=== PATIENT | female | born 1935 | race Caucasian/White ===

== ENCOUNTER 2019-12-05 07:23 | Day surgery (SDC) | payer MEDICARE, BC, SELFPAY ==
[2019-11-29 16:26] VITALS: BMI 25.2
--- NOTE | 2019-12-04 08:26 | P.CONAN_ITS ---
Documented by User: Jessie Mayer 12/04/19 08:31 HPI - Anesthesia Eval Consult details Narrative: 84yo F for EGD: esophagitis, esoph stricture Last EGD 08/08/19 with TIVA PMFSH Past Medical History Medical History Arthritis BCC (basal cell carcinoma of skin) Carotid stenosis, asymptomatic Degenerative joint disease of knee Elevated cholesterol Hearing loss History of dysphagia History of esophageal stricture Iron deficiency anemia PVD (peripheral vascular disease) Trigeminal neuralgia Surgical History Surgical History History of esophagogastroduodenoscopy (EGD) History of total left hip replacement Hx of colonoscopy Social History Social History Smoking Status: Unknown if ever smoked Use of substances other than those prescribed or required for medical reasons: No Advance Directives: No Advance Directives Information Provided: No Advance Directives on File: No Meds Allergies Allergy/AdvReac Type Severity Reaction Status Date / Time celecoxib [Celebrex] Allergy Unknown hives Verified 11/29/19 16:25 hydromorphone [Dilaudid] Allergy Unknown nausea/vomi Verified 11/29/19 16:25 tting naproxen [Aleve] Allergy Unknown elevated bp Verified 11/29/19 16:25 tramadol Allergy Unknown vomit Verified 11/29/19 16:25 Eggs/Apples/Oats Allergy Unknown Unknown Uncoded 11/29/19 16:25 Sulfacet-R Allergy Unknown Unknown Uncoded 11/29/19 16:25 Home Medications Medication Instructions Recorded Confirmed Type atorvastatin [Lipitor] 10 mg PO DAILY 11/29/19 11/29/19 History cyclosporine [Restasis] 1 drp OPHTHALMIC (EYE) Q12H 11/29/19 11/29/19 History fluticasone propionate [Flonase] 1 spray INTRANASAL DAILY 11/29/19 11/29/19 History pantoprazole 20 mg PO DAILY 11/29/19 12/05/19 History Exam Exam Date and Time: December 04, 2019 0826 Height,Weight and Vital Signs: Height 5 ft 5 in Weight 68.946 kg Pertinent Lab Results Pertinent Lab Results: Laboratory Tests 08/28/19 09/12/19 11:56 11:26 WBC 10.4 Hgb 12.3 Hct 39.2 Plt Count 282 Sodium 141 Potassium 4.4 Chloride 104 BUN 15 Creatinine 0.92 Assessment and Plan Assessment Anesthesia Assessment: Chart Reviewed Documented by User: Yossi Be MD 12/05/19 08:27 [facility] Past Medical History Medical History Arthritis BCC (basal cell carcinoma of skin) Carotid stenosis, asymptomatic Degenerative joint disease of knee Elevated cholesterol Hearing loss History of dysphagia History of esophageal stricture Iron deficiency anemia PVD (peripheral vascular disease) Trigeminal neuralgia Surgical History Surgical History History of esophagogastroduodenoscopy (EGD) History of total left hip replacement Hx of colonoscopy Social History Social History Smoking Status: Unknown if ever smoked Use of substances other than those prescribed or required for medical reasons: No Advance Directives: No Advance Directives Information Provided: No Advance Directives on File: No Meds Allergies Allergy/AdvReac Type Severity Reaction Status Date / Time celecoxib [Celebrex] Allergy Unknown hives Verified 11/29/19 16:25 hydromorphone [Dilaudid] Allergy Unknown nausea/vomi Verified 11/29/19 16:25 tting naproxen [Aleve] Allergy Unknown elevated bp Verified 11/29/19 16:25 tramadol Allergy Unknown vomit Verified 11/29/19 16:25 Eggs/Apples/Oats Allergy Unknown Unknown Uncoded 11/29/19 16:25 Sulfacet-R Allergy Unknown Unknown Uncoded 11/29/19 16:25 Home Medications Medication Instructions Recorded Confirmed Type atorvastatin [Lipitor] 10 mg PO DAILY 11/29/19 11/29/19 History cyclosporine [Restasis] 1 drp OPHTHALMIC (EYE) Q12H 11/29/19 11/29/19 History fluticasone propionate [Flonase] 1 spray INTRANASAL DAILY 11/29/19 11/29/19 History pantoprazole 20 mg PO DAILY 11/29/19 12/05/19 History Exam Airway Mallampati Class: II TM Dist: >3cm Neck ROM: Limited Loose/Missing/Broken Teeth: No Heart: rrr Lungs: nl Other: ao Assessment and Plan Assessment Anesthesia Assessment: Anesthesia Plan Discussed and Chart Reviewed Final Anesthetic Review NPO: Yes ASA Class: III Final Preanesthetic Review: No Changes in Pt Med Stat, Meds/Allgs Chart Reviewed, Consent Obtained/Reviewed and Anes Risks/Benef Reviewed Patient Risk: Intermediate Procedure Risk: Intermediate Anesthetic Plan Anesthetic Plan: MAC: Disposition: Standard PACU
[2019-12-05 07:59] VITALS: BP 178/71; PULSE 77; RESP 16; TEMP 36.1; O2SAT 97
[2019-12-05] MEDS: Lactated Ringers 1,000 ML 100 ML IVCONT (08:14)
--- NOTE | 2019-12-05 08:33 | MHC.SHP ---
Pre-Procedural Eval Section B Chief Complaint: DYSPHASIA Details of Present Illness: dysphagia Relevant Family History (Specify if Yes): No Relevant Social History: None Present Medications: see Short Stay Collaborative assessment Medical History: Significant History (Eoe OA, hearing loss, ) History of Previous Operations: Relevant previous surgery/procedure and date(s) (hip surgery) Allergies: Allergies Allergy/AdvReac Type Severity Reaction Status Date / Time celecoxib [Celebrex] Allergy Unknown hives Verified 11/29/19 16:25 hydromorphone [Dilaudid] Allergy Unknown nausea/vomi Verified 11/29/19 16:25 tting naproxen [Aleve] Allergy Unknown elevated bp Verified 11/29/19 16:25 tramadol Allergy Unknown vomit Verified 11/29/19 16:25 Eggs/Apples/Oats Allergy Unknown Unknown Uncoded 11/29/19 16:25 Sulfacet-R Allergy Unknown Unknown Uncoded 11/29/19 16:25 Review of Systems Sugical H&P ROS: Negative: Constitution, Cardiovascular, Respiratory, Neurological, Psychiatric, Hem-Onc, Allergic/Immunologic, Gastrointestinal, Genitourinary, Musculoskeletal, Integumentary, Endocrine and Eyes/Ears/Nose/Throat Exam Surgical H&P Exam: Normal: HEENT, Normal: Heart, Normal: Lungs, Normal: Extremities, Normal: Abdomen, Normal: Skin and Normal: Neurological Plan Diagnosis/Plan: Unchanged Patient has been examined and remains a candidate for the planned procedure
--- NOTE | 2019-12-05 08:48 | W.PM.OPN ---
Operative Note Operative Note Narrative: Procedure Description: EGD FLEXIBLE TRANSORAL UPPER GASTROINTESTINAL ENDOSCOPY UPPER ENDOSCOPY Consent: Indications for the procedure and potential complications of bleeding, perforation, reaction to medications and missed diagnosis were discussed with the patient and informed consent was obtained. Instrument: Olympus GIF H 190 J mid size upper endoscope Monitoring: Vital signs and clinical assessment, continuous EKG monitoring, Pulse oximetry, Carbon Dioxide monitoring and blood pressure monitoring were done throughout the procedure. Procedure: The patient was placed in the left lateral decubitis position and pre-procedure medications were administered and a bite block was placed. The endoscope was inserted into the mouth and advanced under direct vision to the third part of duodenum. A careful inspection was made as the upper endoscope was withdrawn including a retroflexed examination of the proximal stomach; Findings and interventions are described below. Findings: Larynx:normal Esophagus: GE junction at 35 cm, diaphragm hiatus at 38 cm, 3 cm sliding hiatal hernia noted, some ringing of the esophagus, bx takenf rom distal and proximal esophagus in seperate jars Stomach: Patchy gastric erythema. Grade 2 flap valve on retroflexed examination of the cardia. Several fundic gland polyps noted Duodenum: Normal bulb and descending duodenum, bx taken Intervention: Biopsies as noted above Impression/Findings: hiatal hernia mild gastritis PLAN: cont with current treatment, await bx results
[2019-12-05 08:50] VITALS: BP 126/63; PULSE 77; RESP 16; TEMP 36.3; O2SAT 98
--- NOTE | 2019-12-05 08:51 | PM.OP ---
Brief Operative Note Date of procedure: 12/05/19 Pre-op diagnosis: dysphagia Post-op diagnosis: same Procedure: EGd, see op note Surgeon: Petar Encinas MD Anesthesia: MAC Estimated blood loss (mL): 0 Condition: stable Disposition: same day
[2019-12-05 09:05] VITALS: BP 136/88; PULSE 75; RESP 18; O2SAT 99
--- NOTE | 2019-12-05 09:39 | HO.POSTANES ---
Post Anesthesia Evaluation Post Anesthesia Evaluation Vital Signs: Vital Signs Temp Pulse Resp BP Pulse Ox 12/05/19 09:05 97.3 F 75 18 136/88 99 12/05/19 08:50 97.3 F 77 16 126/63 98 12/05/19 07:59 97.0 F 77 16 178/71 H 97 Anesthesia: General (TIVA) Mental Status: Awake Pain Control: Satisfactory Nausea/Vomiting: None Hydration: Adequate Anesthesia-Related Issues: No Anes. Related Issues
== END 2019-12-05 10:09 | disposition home or self-care (01) ==
PROVIDERS: Internal Medicine Gastroenterology; PCP Internal Medicine; Visit Provider Internal Medicine
PROC: 0DJ08ZZ Inspection of Upper Intestinal Tract, Via Natural or Artificial Opening Endoscopic (ICD-10-PCS; CPT 43235; principal; 2019-12-05 08:30)
DX: K20.0 Eosinophilic esophagitis (principal); K44.9 Diaphragmatic hernia without obstruction or gangrene; K29.70 Gastritis, unspecified, without bleeding; K31.7 Polyp of stomach and duodenum; K57.30 Diverticulosis of large intestine without perforation or abscess without bleeding; E78.5 Hyperlipidemia, unspecified; G50.0 Trigeminal neuralgia; Z79.899 Other long term (current) drug therapy; Z88.8 Allergy status to other drugs, medicaments and biological substances; Z85.828 Personal history of other malignant neoplasm of skin; Z96.642 Presence of left artificial hip joint
CPT/HCPCS: 43239; 88305

== ENCOUNTER → 2020-02-21 14:48 | Outpatient (BNVA) | payer MEDICARE, BC, SELFPAY | PROVIDERS: PCP Internal Medicine; Visit Provider Surgery Vascular Surgery | DX: I73.9 Peripheral vascular disease, unspecified (principal); I65.23 Occlusion and stenosis of bilateral carotid arteries | CPT/HCPCS: 99212 ==

== ENCOUNTER → 2020-03-17 11:21 | Outpatient (BNVA) | payer MEDICARE, BC, SELFPAY | PROVIDERS: PCP Internal Medicine; Visit Provider Internal Medicine Gastroenterology | DX: Z13.89 Encounter for screening for other disorder (principal) | CPT/HCPCS: Q3014 ==

== ENCOUNTER 2020-05-26 12:44 | Outpatient (REF) | payer MEDICARE, BC, SELFPAY ==
--- NOTE | ~2020-05-26 | US_ITS ---
EXAMINATION: US EXTRACRANIAL CAROTID DUPLEX, BILATERAL CLINICAL INFORMATION: Carotid artery stenosis COMPARISON: None TECHNIQUE: Real-time ultrasound and Doppler techniques (integrating B-mode 2-D vascular images, Doppler spectral analysis and color-flow Doppler imaging) were utilized to interrogate the extracranial carotid arteries, the vertebral arteries and proximal subclavian arteries bilaterally. The degree of stenosis is determined by criteria similar to NASCET. FINDINGS: Right Side: 1. There is calcified atherosclerotic plaque seen in the bifurcation/proximal ICA region. 2. The common carotid artery PSV proximally is 150 cm/s and distally 121 cm/s. 3. The proximal internal carotid artery velocities are 112 cm/s systolic and 33.4 cm/s diastolic. 4. The proximal external carotid artery PSV is 98.5 cm/s. 5. The vertebral artery shows antegrade flow. 6. The subclavian artery waveforms are normal. Left Side: 1. There is calcified atherosclerotic plaque seen in the bifurcation/proximal ICA region. 2. The common carotid artery PSV proximally is 95 cm/s and distally 119 cm/s. 3. The proximal internal carotid artery velocities are 60.8 cm/s systolic and 14.5 cm/s diastolic. 4. The proximal external carotid artery PSV is 96.9 cm/s. 5. The vertebral artery shows antegrade flow. 6. The subclavian artery waveforms are normal. US/US carotid duplex BI IMPRESSION: 1. RIGHT: Minimal, non-hemodynamically significant stenosis of the proximal right internal carotid artery corresponding to a 0-49% stenosis by velocity criteria. 2. LEFT: Minimal, non-hemodynamically significant stenosis of the proximal left internal carotid artery corresponding to a 0-49% stenosis by velocity criteria.
== END 2020-05-26 12:45 | disposition home or self-care (01) ==
LOC: HO.US 12:44
PROVIDERS: Visit Provider Surgery Vascular Surgery
DX: I63.233 Cerebral infarction due to unspecified occlusion or stenosis of bilateral carotid arteries (principal)
CPT/HCPCS: 93880

== ENCOUNTER → 2020-06-05 12:58 | Outpatient (BNVA) | payer MEDICARE, BC, SELFPAY | PROVIDERS: PCP Internal Medicine; Visit Provider Surgery Vascular Surgery | DX: I65.23 Occlusion and stenosis of bilateral carotid arteries (principal); I83.12 Varicose veins of left lower extremity with inflammation | CPT/HCPCS: 99212 ==

== ENCOUNTER → 2020-08-07 15:15 | Outpatient (BNVA) | payer MEDICARE, BC, SELFPAY | PROVIDERS: PCP Internal Medicine; Visit Provider Anesthesiology | DX: M16.11 Unilateral primary osteoarthritis, right hip (principal); M47.816 Spondylosis without myelopathy or radiculopathy, lumbar region; M51.36 Other intervertebral disc degeneration, lumbar region; G89.4 Chronic pain syndrome | CPT/HCPCS: 99202 ==

== ENCOUNTER 2020-08-20 10:15 | Outpatient (REF) | payer MEDICARE, BC, SELFPAY ==
--- NOTE | ~2020-08-20 | US_ITS ---
EXAMINATION: RIGHT and LEFT LOWER EXTREMITY VENOUS ULTRASOUND (Reflux Exam) CLINICAL INDICATION: leg pain and varicose veins. COMPARISON: Varicose veins. TECHNIQUE: Color flow triplex imaging and compression Doppler was performed to evaluate both the deep and the superficial systems bilaterally. To evaluate the superficial system, the examination was performed in the upright position. Color-flow Doppler ultrasound and compression ultrasound were utilized. In addition, maneuvers were utilized to demonstrate reflux. FINDINGS: 1. DEEP VENOUS ULTRASOUND OF THE RIGHT LOWER EXTREMITY: Respiratory variation, normal compression and augmented flow are noted in the right common femoral vein as well as the right popliteal vein and there is no evidence of deep venous thrombosis at these locations. There is no evidence of reflux in the deep system in either the common femoral vein or the popliteal vein. There is a 4.1 x 0.8 x 2.5 cm Kim's cyst. 2. SUPERFICIAL ULTRASOUND WITH DOPPLER OF RIGHT LOWER EXTREMITY: The right great saphenous vein at the saphenofemoral junction measures 6 mm, at the mid thigh 3 mm, rledj-fsl-zwme 2 mm, mxgrc-bpz-dydx 2 mm, at mid calf 2 mm and at the ankle measures 3 mm. There is no reflux demonstrated in the right great saphenous vein. There is a laterally accessory greater saphenous vein that measures 1 to 3 mm that does not demonstrate reflux The right small saphenous vein measures 3 to 4 mm and shows no reflux. There are perforators in the thigh and calf that measure 2 to 3 mm and do not demonstrate reflux. 3. DEEP VENOUS ULTRASOUND OF THE LEFT LOWER EXTREMITY: Respiratory variation, normal compression and augmented flow are noted in the left common femoral vein as well as the left popliteal vein and there is no evidence of deep venous thrombosis at these locations. There is no evidence of reflux in the deep system in either the common femoral vein or the popliteal vein. . There is a 3.5 x 1.1 x 1.8 Kim's cyst. 4. SUPERFICIAL ULTRASOUND WITH DOPPLER OF LEFT LOWER EXTREMITY: Left great saphenous vein at the saphenofemoral junction measures 7 mm, at the mid thigh are mm, ujnxy-fjw-fyxn 2 mm, dpqtv-wev-eggu the mm, at mid calf 1 mm and at the ankle measures 2 mm. There is no reflux demonstrated in the left great saphenous vein. There is an accessory medial greater saphenous vein that measures 2 to 4 mm and does not demonstrate reflux. There is an accessory lateral greater saphenous vein that measures 2 to 3 mm and does not demonstrate reflux. The left small saphenous vein measures 5 mm at the saphenofemoral popliteal junction. The remainder of the left lesser saphenous vein is not seen. There is a dye colorist dyer in the proximal calf that measures 2 mm and does not demonstrate reflux. There is a varicosity of the lesser saphenous vein that measures 4 mm and demonstrates 2 seconds reflux. There is a varicosity at the knee that measures 3 mm and does not demonstrate reflux. There is a varicosity in the left proximal calf of the greater saphenous vein that measures 3 mm and demonstrates 0.4 seconds US/US venous duplex LE BI IMPRESSION: 1. No evidence of reflux or thrombus in the common femoral veins or popliteal veins bilaterally. 2. No greater saphenous vein reflux. The left lesser saphenous vein is slightly dilated measuring 5 mm at the saphenofemoral junction and is otherwise not visualized. There is a varicosity in the left calf of the proximal lesser saphenous vein that measures 4 mm and demonstrates 2.1 seconds reflux.
== END 2020-08-20 10:16 | disposition home or self-care (01) ==
LOC: HO.US 10:15
PROVIDERS: PCP Internal Medicine; Visit Provider Surgery Vascular Surgery
DX: I83.893 Varicose veins of bilateral lower extremities with other complications (principal); I83.12 Varicose veins of left lower extremity with inflammation
CPT/HCPCS: 93970

== ENCOUNTER → 2020-09-04 10:52 | Outpatient (BNVA) | payer MEDICARE, BC, SELFPAY | PROVIDERS: PCP Internal Medicine; Visit Provider Surgery Vascular Surgery | DX: I83.12 Varicose veins of left lower extremity with inflammation (principal); I73.9 Peripheral vascular disease, unspecified; E78.00 Pure hypercholesterolemia, unspecified | CPT/HCPCS: 99212 ==

== ENCOUNTER → 2021-02-02 10:11 | Outpatient (BNVA) | payer MEDICARE, BC, SELFPAY | PROVIDERS: PCP Internal Medicine; Referring Provider Internal Medicine; Visit Provider Internal Medicine Gastroenterology | DX: K21.00 Gastro-esophageal reflux disease with esophagitis, without bleeding (principal); K44.9 Diaphragmatic hernia without obstruction or gangrene | CPT/HCPCS: 99212 ==

== ENCOUNTER → 2021-11-02 09:31 | Outpatient (BNVA) | payer MEDICARE, BC, SELFPAY | PROVIDERS: PCP Internal Medicine; Visit Provider Internal Medicine Gastroenterology | DX: K44.9 Diaphragmatic hernia without obstruction or gangrene (principal); K21.00 Gastro-esophageal reflux disease with esophagitis, without bleeding; I73.9 Peripheral vascular disease, unspecified; Z98.890 Other specified postprocedural states | CPT/HCPCS: 99212 ==

== ENCOUNTER 2022-10-11 10:49 | Outpatient (AMB) | payer MEDICARE, BC, SELFPAY ==
[2022-10-11 10:51] VITALS: BP 124/70; PULSE 73; RESP 14; O2SAT 99; BMI 24.1
--- NOTE | 2022-10-11 10:51 | A.OFFVIS_ITS ---
Intake Vital Signs 10/11/22 10:51 Height 5 ft 5 in Weight 145 lb BMI 24.1 BP 124/70 Blood Pressure Location Rt brachial Position Sitting Respiration 14 Pulse 73 Pulse Source Pulse Oximeter Pulse Oximetry (%) 99 Oxygen Delivery Method Room Air Intake Visit Reasons: LBP lumbar disc disease Allergies celecoxib [Celebrex] Allergy (Unknown, Verified 10/11/22 10:52) hives hydromorphone [Dilaudid] Allergy (Unknown, Verified 10/11/22 10:52) nausea/vomitting naproxen [Aleve] Allergy (Unknown, Verified 10/11/22 10:52) elevated bp tramadol Allergy (Unknown, Verified 10/11/22 10:52) vomit coconut Allergy (Verified 10/11/22 10:52) nausea, rash diphenhydramine [From Benadryl] Allergy (Verified 10/11/22 10:52) unknown cetirizine [From Zyrtec] Adverse Reaction (Mild, Verified 10/11/22 10:52) Itching atorvastatin [From Lipitor] Adverse Reaction (Unknown, Verified 10/11/22 10:52) stiffness codeine Adverse Reaction (Verified 10/11/22 10:52) sensitive eggs Allergy (Mild, Uncoded 10/11/22 10:52) Unknown sulphur Allergy (Mild, Uncoded 10/11/22 10:52) Unknown valium Allergy (Mild, Uncoded 10/11/22 10:52) Unknown Medication List - Last Reconciled 10/11/22 by Belle Allen LPN apixaban (Eliquis) 2.5 mg PO BID calcium citrate 400 mg PO DAILY cholecalciferol (vitamin D3) 25 mcg PO DAILY coenzyme Q10 100 mg PO DAILY cyclosporine 0.05% (Restasis) 1 drp ophthalmic (eye) Q12H furosemide 40 mg PO DAILY mecobalamin (vitamin B12) 1,000 mcg PO DAILY multivitamin 1 tab PO DAILY pantoprazole 20 mg PO DAILY HPI LBP lumbar disc disease HPI Details 87-year-old female is presenting today for a follow-up evaluation for low back pain. She will last seen in our clinic in [address] Xie for hip pain. Since then she has had a hip replacement about two years ago. She is currently on Eliquis which is prescribed by her primary care physician for history of recurrent DVT. Her main complaint today is left lower back pain overlying the sacroiliac joint area. She also describes some pain around her waist. Pain is rated as 7 to 9/10 in intensity. It is worst with movements or when she tries to get up. 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, lumbar Elevated cholesterol Hearing loss History of dysphagia History of esophageal stricture Iron deficiency anemia Osteoarthritis of right hip PVD (peripheral vascular disease) Spondylosis of lumbar spine Trigeminal neuralgia Surgical History (Updated 11/02/21 @ 09:46 by TERENCE Roche) History of esophagogastroduodenoscopy (EGD) History of total left hip replacement Hx of colonoscopy Hx of tooth extraction Family History Father Hx of heat stroke Mother History of heart attack Social History Household Members: Spouse Alcohol intake: current Alcohol intake frequency: does not drink Review of Systems Const All systems reviewed & are unremarkable except as noted in HPI and below Physical Exam Vital Signs: Last Vital Signs Pulse 73 10/11/22 10:51 Resp 14 10/11/22 10:51 BP 124/70 10/11/22 10:51 Pulse Ox 99 10/11/22 10:51 Oxygen Delivery Method Room Air 10/11/22 10:51 BMI result Body Mass Index 24.1 General: Appears afebrile. Alert and oriented. Mood and affect appropriate. Follows and participates in conversation appropriately. Respiratory effort is unlabored. Able to transition from sit to stand unassisted. Ambulates with bilaterally normal heel strike and toe off. Lumbar extension is limited. Lumbar extension does not reproduce pain. ENID is mildly positive. There is tenderness overlying the sacroiliac joint on the left side. Results Reviewed Results Reviewed: 08/09/22: X-RAY EXAM OF LOWER SPINE WITH OBLIQUES. 03/22/20: MR LUMBAR SPINE Assessment & Plan Assessment & Plan (1) Disc degeneration, lumbar: Code(s): M51.36 - Other intervertebral disc degeneration, lumbar region (2) Sacroiliac joint pain: Code(s): M53.3 - Sacrococcygeal disorders, not elsewhere classified (3) Spondylosis of lumbar spine: Code(s): M47.816 - Spondylosis without myelopathy or radiculopathy, lumbar region Plan Will schedule her for left therapeutic sacroiliac joint injection. Discussed the risks and benefits of the procedure with the patient in detail. All questions were answered. The patient is on board with the plan. If sacroiliac joint is not identified to be the source of her pain, we will consider facet blocks and potential transforaminal epidural steroid injections in the future. Advised to stop Eliquis for two days prior to the injection. Justification for interventional therapy: ? Patient with average pain > 6/10 ? Patient has exhausted conservative therapy Scribed for Dr. Be by Dawit Uriostegui, spanish medical interpreter, on 10/11/2022. I, Dr. Be, have personally reviewed and agree with the information entered by the scribe. Coding Level of Care Code Est Pt Level 4 (80274) Diagnoses Disc degeneration, lumbar M51.36 Sacroiliac joint pain M53.3 Spondylosis of lumbar spine M47.816
== END 2022-10-11 11:28 | disposition home or self-care (01) ==
PROVIDERS: PCP Internal Medicine; Referring Provider Internal Medicine; Visit Provider Internal Medicine
DX: M51.36 Other intervertebral disc degeneration, lumbar region (principal); M53.3 Sacrococcygeal disorders, not elsewhere classified; M47.816 Spondylosis without myelopathy or radiculopathy, lumbar region
CPT/HCPCS: 99214

== ENCOUNTER → 2022-10-11 10:49 | Outpatient (BNVA) | payer MEDICARE, BC, SELFPAY | PROVIDERS: PCP Internal Medicine; Visit Provider Internal Medicine | DX: M51.36 Other intervertebral disc degeneration, lumbar region (principal); M53.3 Sacrococcygeal disorders, not elsewhere classified; M47.816 Spondylosis without myelopathy or radiculopathy, lumbar region | CPT/HCPCS: 99212 ==

== ENCOUNTER 2022-10-27 06:09 | Outpatient (REF) | payer MEDICARE, BC, SELFPAY ==
--- NOTE | ~2022-10-27 | FL_ITS ---
EXAMINATION: XR FLUOROSCOPY WITH IMAGES CLINICAL INFORMATION: Sacrococcygeal disorders, not elsewhere classified. COMPARISON: None available. TECHNIQUE: Fluoroscopy Supervised By: Dr. Yossi Be. Fluoroscopy Time: 0.1 minute. Cumulative Dose: 2.18 mGy. DAP: 0.211 Gycm2. Images: 2. FINDINGS: Images demonstrate needle placement over the left sacroiliac joint. FL/FL guidance in treatment room IMPRESSION: Fluoroscopy guidance for left sacroiliac joint injection.
== END 2022-10-27 06:10 | disposition home or self-care (01) ==
LOC: CF 06:09
PROVIDERS: PCP Internal Medicine; Visit Provider Internal Medicine
DX: M53.3 Sacrococcygeal disorders, not elsewhere classified (principal)
CPT/HCPCS: 27096; J3301

== ENCOUNTER 2022-10-27 07:29 | Outpatient (AMB) | payer MEDICARE, BC, SELFPAY ==
[2022-10-27 07:37] VITALS: BP 148/66; PULSE 70; RESP 14; O2SAT 98
--- NOTE | 2022-10-27 07:37 | A.OFFVIS_ITS ---
Intake Vital Signs 10/27/22 07:37 10/27/22 08:51 BP 148/66 H 148/66 H Blood Pressure Location Rt brachial Lt brachial Position Sitting Sitting Respiration 14 14 Pulse 70 75 Pulse Source Pulse Oximeter Pulse Oximeter Pulse Oximetry (%) 98 96 Oxygen Delivery Method Room Air Room Air Intake Visit Reasons: Left theraputic SIJ inj Allergies celecoxib [Celebrex] Allergy (Unknown, Verified 10/27/22 07:38) hives hydromorphone [Dilaudid] Allergy (Unknown, Verified 10/27/22 07:38) nausea/vomitting naproxen [Aleve] Allergy (Unknown, Verified 10/27/22 07:38) elevated bp tramadol Allergy (Unknown, Verified 10/27/22 07:38) vomit coconut Allergy (Verified 10/27/22 07:38) nausea, rash diphenhydramine [From Benadryl] Allergy (Verified 10/27/22 07:38) unknown cetirizine [From Zyrtec] Adverse Reaction (Mild, Verified 10/27/22 07:38) Itching atorvastatin [From Lipitor] Adverse Reaction (Unknown, Verified 10/27/22 07:38) stiffness codeine Adverse Reaction (Verified 10/27/22 07:38) sensitive eggs Allergy (Mild, Uncoded 10/27/22 07:38) Unknown sulphur Allergy (Mild, Uncoded 10/27/22 07:38) Unknown valium Allergy (Mild, Uncoded 10/27/22 07:38) Unknown HPI Left theraputic SIJ inj HPI Details Patient presents for scheduled procedure. Denies any recent cough, cold, infection, fever or other significant changes in medical history since last office visit. [facility] Medical History (Updated 10/11/22 @ 16:56 by Yossi Be MD) Chronic pain syndrome Disc degeneration, lumbar Spondylosis of lumbar spine Osteoarthritis of right hip BCC (basal cell carcinoma of skin) History of esophageal stricture Degenerative joint disease of knee Arthritis Iron deficiency anemia History of dysphagia Trigeminal neuralgia Hearing loss Carotid stenosis, asymptomatic Elevated cholesterol PVD (peripheral vascular disease) Surgical History (Updated 11/02/21 @ 09:46 by TERENCE Roche) Hx of tooth extraction History of total left hip replacement Hx of colonoscopy History of esophagogastroduodenoscopy (EGD) Family History Father Hx of heat stroke Mother History of heart attack Social History Household Members: Spouse Alcohol intake: current Alcohol intake frequency: does not drink Physical Exam Vital Signs: Last Vital Signs Pulse 75 10/27/22 08:51 Resp 14 10/27/22 08:51 BP 148/66 H 10/27/22 08:51 Pulse Ox 96 10/27/22 08:51 Oxygen Delivery Method Room Air 10/27/22 08:51 Office Procedures Joint Injection/Drain Joint Injection/Drain Details: Sacroiliac Joint Injection, Left The procedure, its benefits, and its risks were explained and written informed consent was obtained from the patient. Immediately prior to starting the procedure, a time-out safety check was conducted. The patient's identification, procedure name, procedure site, and procedure laterality were confirmed with the patient. ? Patient was placed prone on the fluoroscopy table and the lumbosacral area was prepped using ChloraPrep and draped with sterile drapein standard fashion. The C-arm was rotated in a contralateral oblique fashion until the medial border of the iliac crest no longer foreshadowed the posterior sacroiliac joint line. The skin and subcutaneous tissue was anesthetized using 1 mL of 0.75% plain lidocaine with 1.5-inch 25-gauge needle in the middle region of the joint line.? A 3.5-inch 22-gauge spinal needle with small bend on the tip was slowly advanced towards the joint line, coaxial to the x-ray beam. Once bony content was obtained, the needle was easily slid into the intra-articular space.? Intra- articular needle position was confirmed using lateral fluoroscopy.? A total volume of 2.5mL of solution containing 40 mg Depomedrol and rest 0.5% of bupivacaine was injected intra-articularly. The stylet was reinserted and needle was removed. The patient tolerated the procedure well. Patient denied any lower extremity weakness or numbness. Patient was observed for 30 min and was discharged after fulfilling the standard discharge criteria. Coding 64115 - Sacroiliac Procedure code (CPT) selection complete Assessment & Plan Assessment & Plan (1) Sacroiliac joint pain: Code(s): M53.3 - Sacrococcygeal disorders, not elsewhere classified Plan Patient is status post left SIJ injection. Patient tolerated procedure well and was discharged home in stable condition with discharge instructions. All questions were answered. We will follow-up via telephone or in clinic to assess response to therapy. A follow-up appointment was made during today's visit. Orders: Orders FL guidance in treatment room 10/27/22 M53.3 - Sacrococcygeal disorders, not elsewhere classified Coding Level of Care Code Procedure Only Diagnoses Sacroiliac joint pain M53.3 CPT Codes Coding - Joint 9: 17698 - Sacroiliac ([id number])
[2022-10-27 08:51] VITALS: BP 148/66; PULSE 75; RESP 14; O2SAT 96
== END 2022-10-27 08:29 | disposition home or self-care (01) ==
LOC: HO.PMCPRC 07:29
PROVIDERS: PCP Internal Medicine; Visit Provider Internal Medicine
DX: M53.3 Sacrococcygeal disorders, not elsewhere classified (principal)
CPT/HCPCS: 27096

== ENCOUNTER 2022-11-26 09:17 | Outpatient (AMB) | payer MEDICARE, BC, SELFPAY ==
--- NOTE | 2022-11-26 09:32 | A.OFFVIS_ITS ---
Intake Vital Signs 3 11/26/22 09:42 Height 5 ft 5 in Weight 142 lb BMI 23.6 BP 191/86 H Blood Pressure Location Lt brachial Position Sitting Pulse 80 Pulse Source Pulse Oximeter Pulse Oximetry (%) 97 Oxygen Delivery Method Room Air Intake Visit Reasons: s/p left theraputic SIJ inj Intake Note: Pain today 0/10 Facility Specialist Required: No Accompanied by: Self / Same As Patient Allergies celecoxib [Celebrex] Allergy (Unknown, Verified 11/26/22 09:42) hives hydromorphone [Dilaudid] Allergy (Unknown, Verified 11/26/22 09:42) nausea/vomitting naproxen [Aleve] Allergy (Unknown, Verified 11/26/22 09:42) elevated bp tramadol Allergy (Unknown, Verified 11/26/22 09:42) vomit coconut Allergy (Verified 11/26/22 09:42) nausea, rash diphenhydramine [From Benadryl] Allergy (Verified 11/26/22 09:42) unknown cetirizine [From Zyrtec] Adverse Reaction (Mild, Verified 11/26/22 09:42) Itching atorvastatin [From Lipitor] Adverse Reaction (Unknown, Verified 11/26/22 09:42) stiffness codeine Adverse Reaction (Verified 11/26/22 09:42) sensitive eggs Allergy (Mild, Uncoded 10/27/22 07:38) Unknown sulphur Allergy (Mild, Uncoded 10/27/22 07:38) Unknown valium Allergy (Mild, Uncoded 10/27/22 07:38) Unknown HPI HPI Comments 2 History of Present Illness0 Details Patient presents today to assess response to Therapeutic Left Sacroiliac Joint Injections on 10/27/[address] Be. Patient reports 90% pain relief for 1 week in the projection of left SIJ area with some improvement in her functioning, mobility and quality of life. She continues to endorse pain across her lower back and stiffness on the left lower back especially with getting up and prolonged standing. Despite pain, patient lives an active lifestyle and exercises daily. Her home exercise program consists of daily exercises stationary bike 3 miles/day, daily morning exercise with TV program for 20 min, and swimming 2-3 times per week. Patient is interested to undergo diagnostic facet blocks for her lower back pain as next steps. Denies any recent cough, cold, infection, fever or other significant changes in medical history since last office visit. Patient denies any bladder or bowel incontinence or saddle anesthesia. Past Procedures: 10/27/22: Therapeutic Left Sacroiliac Nesha int Injections-90% pain relief for [address] Be 10/11/22: 87-year-old female is presenting today f or a follow-up evaluation for low back pain. She will last seen in our clinic in [address] Xie for hip pain. Since then she has had a hip replacement about two years ago. She is currently on Eliquis which is prescribed by her primary care physician for history of recurrent DVT. Her main complaint today is left lower back pain overlying the sacroiliac joint area. She also describes some pain around her waist. Pain is rated as 7 to 9/10 in intensity. It is worst with movements or when she tries to get up. [facility] Medical History (Updated 10/11/22 @ 16:56 by Yossi Be MD) Chronic pain syndrome Disc degeneration, lumbar Spondylosis of lumbar spine Osteoarthritis of right hip BCC (basal cell carcinoma of skin) History of esophageal stricture Degenerative joint disease of knee Arthritis Iron deficiency anemia History of dysphagia Trigeminal neuralgia Hearing loss Carotid stenosis, asymptomatic Elevated cholesterol PVD (peripheral vascular disease) Surgical History (Updated 11/02/21 @ 09:46 by TERENCE Roche) Hx of tooth extraction History of total left hip replacement Hx of colonoscopy History of esophagogastroduodenoscopy (EGD) Family History Father Hx of heat stroke Mother History of heart attack Social History Household Members: Spouse Alcohol intake: current Alcohol intake frequency: does not drink Review of Systems Const All systems reviewed & are unremarkable except as noted in HPI and below Physical Exam Vital Signs: Last Vital Signs Pulse 80 11/26/22 09:42 BP 191/86 H 11/26/22 09:42 Pulse Ox 97 11/26/22 09:42 Oxygen Delivery Method Room Air 11/26/22 09:42 BMI result Body Mass Index 23.6 General: Appears afebrile. Alert and oriented. Mood and affect appropriate. Follows and participates in conversation appropriately. Respiratory effort is unlabored. Able to transition from sit to stand unassisted. Ambulates with bilaterally normal heel strike and toe off. Back/Spine/Pelvis Other: Lumbar extension is limited. Lumbar flexion does not reproduce pain. Sacroiliac joints: on the right nontender and on the left (+Clinton's (mild), +Stinchfield's test) tender to palpation Results Reviewed Results Reviewed: 08/09/22: X-RAY EXAM OF LOWER SPINE WITH OBLIQUES. 03/22/20: MR LUMBAR SPINE Assessment & Plan Assessment & Plan (1) Disc degeneration, lumbar: Code(s): M51.36 - Other intervertebral disc degeneration, lumbar region (2) Sacroiliac joint pain: Code(s): M53.3 - Sacrococcygeal disorders, not elsewhere classified (3) Spondylosis of lumbar spine: Code(s): M47.816 - Spondylosis without myelopathy or radiculopathy, lumbar region Plan Will schedule patient for Bilateral Diagnostic L3/L4, L4/L5, and L5/S1 facet blocks with local and fluoroscopy for lower back pain. Discussed the risks and benefits of the procedure with the patient in detail. If no relief, will consider potential transforaminal epidural steroid injections in the future. All questions were answered and the patient is in agreement of plan. Follow-up after injections and sooner as needed. Anticoagulation: Advised to stop Eliquis for two days prior to the injection. Justification for interventional therapy: ? Patient with average pain > 6/10 ? Patient has exhausted conservative therapy, actively performing HEP Coding Level of Care Code Est Pt Level 3 (34662) Diagnoses Disc degeneration, lumbar M51.36 Sacroiliac joint pain M53.3 Spondylosis of lumbar spine M47.816
[2022-11-26 09:42] VITALS: BP 191/86; PULSE 80; O2SAT 97; BMI 23.6
== END 2022-11-26 10:10 | disposition home or self-care (01) ==
PROVIDERS: PCP Internal Medicine; Visit Provider Nurse Practitioner Family
DX: M51.36 Other intervertebral disc degeneration, lumbar region (principal); M53.3 Sacrococcygeal disorders, not elsewhere classified; M47.816 Spondylosis without myelopathy or radiculopathy, lumbar region
CPT/HCPCS: 99213

== ENCOUNTER → 2022-11-26 09:17 | Outpatient (BNVA) | payer MEDICARE, BC, SELFPAY | PROVIDERS: PCP Internal Medicine; Visit Provider Nurse Practitioner Family | DX: M51.36 Other intervertebral disc degeneration, lumbar region (principal); M53.3 Sacrococcygeal disorders, not elsewhere classified; M47.816 Spondylosis without myelopathy or radiculopathy, lumbar region | CPT/HCPCS: 99212 ==

== ENCOUNTER 2022-12-31 08:52 | Outpatient (AMB) | payer MEDICARE, BC, SELFPAY ==
[2022-12-31 08:58] VITALS: PULSE 83; RESP 12; O2SAT 98; BMI 23.6
--- NOTE | 2022-12-31 08:58 | MHC.OFFVIS ---
Intake Vital Signs 12/31/22 08:58 Height 5 ft 5 in Weight 142 lb BMI 23.6 Blood Pressure Location Rt brachial Position Sitting Respiration 12 Pulse 83 Pulse Source Pulse Oximeter Pulse Oximetry (%) 98 Oxygen Delivery Method Room Air Intake Visit Reasons: Medicare denial/confirmed Allergies celecoxib [Celebrex] Allergy (Unknown, Verified 12/31/22 09:00) hives hydromorphone [Dilaudid] Allergy (Unknown, Verified 12/31/22 09:00) nausea/vomitting naproxen [Aleve] Allergy (Unknown, Verified 12/31/22 09:00) elevated bp tramadol Allergy (Unknown, Verified 12/31/22 09:00) vomit coconut Allergy (Verified 12/31/22 09:00) nausea, rash diphenhydramine [From Benadryl] Allergy (Verified 12/31/22 09:00) unknown cetirizine [From Zyrtec] Adverse Reaction (Mild, Verified 12/31/22 09:00) Itching atorvastatin [From Lipitor] Adverse Reaction (Unknown, Verified 12/31/22 09:00) stiffness codeine Adverse Reaction (Verified 12/31/22 09:00) sensitive eggs Allergy (Mild, Uncoded 12/31/22 09:00) Unknown sulphur Allergy (Mild, Uncoded 12/31/22 09:00) Unknown valium Allergy (Mild, Uncoded 12/31/22 09:00) Unknown Medication List - Last Reconciled 12/31/22 by Belle Allen LPN apixaban (Eliquis) 2.5 mg PO BID calcium citrate 400 mg PO DAILY cholecalciferol (vitamin D3) 25 mcg PO DAILY coenzyme Q10 100 mg PO DAILY cyclosporine 0.05% (Restasis) 1 drp ophthalmic (eye) Q12H furosemide 40 mg PO DAILY mecobalamin (vitamin B12) 1,000 mcg PO DAILY multivitamin 1 tab PO DAILY pantoprazole 20 mg PO DAILY HPI Medicare denial/confirmed HPI Details 87-year-old female who presents today to the office following denial for facet intervention. The reason for denial was listed as the pain not being primarily axial in nature. This is surprising since none of our previous notes nor her previous pain history has ever indicated evidence of radiation below beyond the axial low back. Her pain is localized in the left lower back region, which occasionally radiates to the right side. She has to take a break prior to walking. She rides a bike for about 3 miles a day. She states that she was unable to swim the other day. She performs home exercises every morning. She has tried TENS units in the past with good relief. She takes Tylenol P.R.N. for pain management. Her primary insurance is Medicare, and her secondary is [employer]. She will attend her granddaughter's wedding in March 2023. Past Procedures: 10/27/22: Therapeutic Left Sacroiliac Joint Injections-90% pain relief for 1 week. [facility] Medical History (Updated 12/31/22 @ 11:12 by Yossi Be MD) Chronic pain syndrome Disc degeneration, lumbar Spondylosis of lumbar spine Osteoarthritis of right hip BCC (basal cell carcinoma of skin) History of esophageal stricture Degenerative joint disease of knee Arthritis Iron deficiency anemia History of dysphagia Trigeminal neuralgia Hearing loss Carotid stenosis, asymptomatic Elevated cholesterol PVD (peripheral vascular disease) Surgical History (Updated 11/02/21 @ 09:46 by TERENCE Roche) Hx of tooth extraction History of total left hip replacement Hx of colonoscopy History of esophagogastroduodenoscopy (EGD) Family History Father Hx of heat stroke Mother History of heart attack Social History Household Members: Spouse Alcohol intake: current Alcohol intake frequency: does not drink Review of Systems Const All systems reviewed & are unremarkable except as noted in HPI and below Physical Exam Vital Signs: Last Vital Signs Pulse 83 12/31/22 08:58 Resp 12 12/31/22 08:58 Pulse Ox 98 12/31/22 08:58 Oxygen Delivery Method Room Air 12/31/22 08:58 BMI result Body Mass Index 23.6 General: Appears afebrile. Alert and oriented. Mood and affect appropriate. Follows and participates in conversation appropriately. Respiratory effort is unlabored. Able to transition from sit to stand unassisted. Ambulates with bilaterally normal heel strike and toe off. Lumbar extension is limited. Facet loading does not reproduce pain. Flexion does not reproduce pain. Results Reviewed Results Reviewed: No imaging is available for review. Assessment & Plan Assessment & Plan (1) Intractable low back pain: Code(s): M54.59 - Other low back pain Plan Discussed temporary nerve stimulator as a possible treatment option for intractable low back pain, worse on the left side. She has previously reported good relief with the use of transcutaneous electrical nerve stimulation devices. Unfortunately the relief does not last very long. She is interested in trialing temporary nerve stimulation to see if she might get more longer-term benefit. Will schedule her for a Left L3 medial branch nerve stimulator for intractable low back pain. Discussed the risks and benefits of the procedure with the patient in detail. All questions were answered. The patient is on board with the plan. Justification for interventional therapy: ? Patient with average pain > 6/10 ? Patient has exhausted conservative therapy and continues to have constant axial low back pain Scribed for Dr. Be by Dawit Uriostegui, certified medical aide, on 12/31/2022. I, Dr. Be, have personally reviewed and agree with the information entered by the scribe. Coding Level of Care Code Est Pt Level 3 (82423) Diagnoses Intractable low back pain M54.59
== END 2022-12-31 09:20 | disposition home or self-care (01) ==
PROVIDERS: PCP Internal Medicine; Visit Provider Internal Medicine
DX: M54.59 Other low back pain (principal)
CPT/HCPCS: 99213

== ENCOUNTER → 2022-12-31 08:52 | Outpatient (BNVA) | payer MEDICARE, BC, SELFPAY | PROVIDERS: PCP Internal Medicine; Visit Provider Internal Medicine | DX: M54.59 Other low back pain (principal) | CPT/HCPCS: 99212 ==

== ENCOUNTER 2023-02-02 08:30 | Day surgery (SDC) | payer MEDICARE, BC, SELFPAY ==
--- NOTE | ~2023-02-02 | FL_ITS ---
EXAMINATION: XR FLUOROSCOPY WITH IMAGES CLINICAL INFORMATION: L3 medial branch SPRINT. COMPARISON: None available. TECHNIQUE: Fluoroscopy Supervised By: Dr. Yossi Be. Fluoroscopy Time: 0.1 minute. Cumulative Dose: 2.31 mGy. DAP: 0.239 Gycm2. Images: 2. FINDINGS: Image demonstrates wire projecting over the left lower lumbar spine FL/FL guidance in OR IMPRESSION: Fluoroscopy guidance for pain management procedure
[2023-02-02 09:33] VITALS: BMI 23.5
[2023-02-02 09:45] VITALS: BP 182/86; PULSE 75; RESP 16; TEMP 36.2; O2SAT 99
[2023-02-02 10:33] VITALS: BP 175/75; PULSE 68; RESP 20; TEMP 36.3; O2SAT 98
--- NOTE | 2023-02-02 15:22 | MHC.SHP ---
Pre-Procedural Eval Section A Date of Service: 02/02/23 The patient is an INPATIENT: No Changes since office visit: Yes Patient answered all questions The History & Physical has been completed within 30 days and I have reviewed it.: No Section B Chief Complaint: Intractable low back pain Relevant Social History: None Present Medications: see Short Stay Collaborative assessment Medical History: No relevant PMH History of Previous Operations: No relevant previous surgery Allergies: Allergies Allergy/AdvReac Type Severity Reaction Status Date / Time celecoxib [Celebrex] Allergy Unknown hives Verified 12/31/22 09:00 hydromorphone [Dilaudid] Allergy Unknown nausea/vomi Verified 12/31/22 09:00 tting naproxen [Aleve] Allergy Unknown elevated bp Verified 12/31/22 09:00 tramadol Allergy Unknown vomit Verified 12/31/22 09:00 coconut Allergy nausea, Verified 12/31/22 09:00 rash diphenhydramine Allergy unknown Verified 12/31/22 09:00 [From Benadryl] cetirizine [From Zyrtec] AdvReac Mild Itching Verified 12/31/22 09:00 atorvastatin [From Lipitor] AdvReac Unknown stiffness Verified 12/31/22 09:00 codeine AdvReac sensitive Verified 12/31/22 09:00 eggs Allergy Mild Unknown Uncoded 12/31/22 09:00 sulphur Allergy Mild Unknown Uncoded 12/31/22 09:00 valium Allergy Mild Unknown Uncoded 12/31/22 09:00 Review of Systems Sugical H&P ROS: Negative: Constitution, Cardiovascular and Respiratory Exam Surgical H&P Exam: Normal: HEENT, Normal: Heart and Normal: Lungs Plan Diagnosis/Plan: Unchanged I have reviewed the history and physical and performed a pertinent physical examination on my patient. No changes have occurred unless specified. Time Spent With Patient Time: Total time managing care of this patient today ____ minutes.
--- NOTE | 2023-02-02 15:23 | P.BOP_ITS ---
Brief Operative Note Date of Service: 02/02/23 Pre-op diagnosis: Intractable low back pain, lumbar spondylosis Post-op diagnosis: same Procedure: Temporary left L3 medial branch nerve stimulator placement Implants: Sprint temporary PNS system Surgeon: Yossi Be MD Anesthesia: local Was an [employer] used for this Procedure?: No Estimated blood loss (mL): 1 Pathology: none sent Condition: stable Disposition: same day
--- NOTE | 2023-02-02 15:24 | W.PM.OPN ---
Operative Note Operative Note Date of Service: 02/02/23 Narrative: Lumbar Medial Branch Nerve Stimulation Lead Placement, SPR (Sprint) System, left L3 ? After the risks, benefits and alternatives were discussed with the patient and informed consent was obtained, patient was placed in the prone position and padded to foster comfort. The skin overlying the lumbosacral spine was prepped and draped in sterile fashion. Fluoroscopy was used to identify the spinous process and lamina in the center of the patient?s region of pain. After identifying and marking the intended target along the course of the medial branch nerve, the skin around the planned entry point and the subcutaneous tissues were injected with lidocaine 1%. An introducer needle and stimulating probe were assembled, inserted and advanced along the intended course of the medial branch nerve as it traverses the lamina medial and inferior to the zygapophyseal joint, taking care to maintain the proper depth of insertion as the introducer is advanced under fluoroscopic guidance. The introducer needle was delivered to a location in proximity to the nerve. Multiple stimulation parameters were used to deliver stimulation to the target medial branch nerve in concert with stimulating at multiple positions around the nerve. Nerve target acquisition was confirmed noting generation of paresthesias in the paravertebral regions corresponding to the level being stimulated. Various electrical parameter combinations were tested, and the lead location was adjusted (physically relocated) until the patient indicated paresthesia/muscle tension overlapping the distribution of the patient?s typical region of pain. The stimulating probe was removed from the introducer and a percutaneous lead was guided through the needle and delivered to a location in similar proximity to the nerve. Final location was verified with electrical stimulation and documented with fluoroscopy. The introducer needle was removed, and the exposed end of the percutaneous lead was attached to an external stimulator unit. Various electrical parameter combinations were again tested until the patient indicated paresthesia or muscle tension overlapping the distribution of the patient?s typical region of pain. After confirming that lead impedance was in the normal range, the external unit was detached, the needle was removed, and the lead was anchored at the skin. The lead was threaded into the connector block and electrical continuity and desired patient response was confirmed. The connector block was attached to the external stimulator unit. The site was covered with a sterile occlusive dressing. The patient was observed for stability of vital signs and comfort.
== END 2023-02-02 11:25 | disposition home or self-care (01) ==
PROVIDERS: PCP Internal Medicine; Visit Provider Internal Medicine
PROC: (CPT 64555; principal; 2023-02-02 09:50)
DX: M54.59 Other low back pain (principal); G89.4 Chronic pain syndrome; M51.36 Other intervertebral disc degeneration, lumbar region; M47.816 Spondylosis without myelopathy or radiculopathy, lumbar region; M16.11 Unilateral primary osteoarthritis, right hip; G50.0 Trigeminal neuralgia; I73.9 Peripheral vascular disease, unspecified; C44.91 Basal cell carcinoma of skin, unspecified; D50.9 Iron deficiency anemia, unspecified; Z79.899 Other long term (current) drug therapy; Z79.01 Long term (current) use of anticoagulants; Z88.5 Allergy status to narcotic agent; Z88.8 Allergy status to other drugs, medicaments and biological substances; Z88.2 Allergy status to sulfonamides
CPT/HCPCS: 64555; C1778

== ENCOUNTER → 2023-02-02 08:30 | Outpatient (BNV) | payer MEDICARE, BC, SELFPAY | PROVIDERS: PCP Internal Medicine; Visit Provider Internal Medicine | DX: M54.59 Other low back pain (principal) | CPT/HCPCS: 64555 ==

== ENCOUNTER → 2023-02-08 13:43 | Outpatient (BNVA) | payer MEDICARE, BC, SELFPAY | PROVIDERS: PCP Internal Medicine; Visit Provider Internal Medicine ==

== ENCOUNTER 2023-02-11 07:56 | Outpatient (AMB) | payer MEDICARE, BC, SELFPAY ==
--- NOTE | 2023-02-11 08:00 | A.OFFVIS_ITS ---
Intake Vital Signs 02/11/23 08:06 Height 5 ft 5 in Weight 147 lb 8 oz BMI 24.5 BP 146/82 H Blood Pressure Location Lt brachial Position Sitting Respiration 14 Pulse 80 Pulse Source Pulse Oximeter Pulse Oximetry (%) 96 Oxygen Delivery Method Room Air Intake Visit Reasons: s/p Left L3 Sprint/lvm Allergies celecoxib [Celebrex] Allergy (Unknown, Verified 02/11/23 08:07) hives hydromorphone [Dilaudid] Allergy (Unknown, Verified 02/11/23 08:07) nausea/vomitting naproxen [Aleve] Allergy (Unknown, Verified 02/11/23 08:07) elevated bp tramadol Allergy (Unknown, Verified 02/11/23 08:07) vomit coconut Allergy (Verified 02/11/23 08:07) nausea, rash diphenhydramine [From Benadryl] Allergy (Verified 02/11/23 08:07) unknown cetirizine [From Zyrtec] Adverse Reaction (Mild, Verified 02/11/23 08:07) Itching atorvastatin [From Lipitor] Adverse Reaction (Unknown, Verified 02/11/23 08:07) stiffness codeine Adverse Reaction (Verified 02/11/23 08:07) sensitive eggs Allergy (Mild, Uncoded 12/31/22 09:00) Unknown sulphur Allergy (Mild, Uncoded 12/31/22 09:00) Unknown valium Allergy (Mild, Uncoded 12/31/22 09:00) Unknown HPI s/p Left L3 Sprint/lvm HPI Details 87-year-old female who presents today to the office for a status post left L3 sprint. The patient reports resolution of her sharp lower back pain following the procedure. She does not feel locked anymore. She had her dressing changed last week at the office. Her device is functional at 48?49, and she is tolerating it well. She states that she has been using the device for more than 12 hours a day. She will avoid bending over to avoid pulling out the device. She reports getting sharp pain in her left arm. She did have a history of rotator cuff tendinitis for about 12 years. She is interested in trying a shoulder injection. Past Procedures: 02/02/23: Lumbar Medial Branch Nerve Sti mulation Lead Placement, SPR (Sprint) System, left L3: Moderate initial relief. 10/27/22: Therapeutic Left Sacroiliac Nesha int Injections-90% pain relief for 1 week. [facility] Medical History (Updated 02/11/23 @ 10:50 by Yossi Be MD) Chronic pain syndrome Disc degeneration, lumbar Spondylosis of lumbar spine Osteoarthritis of right hip BCC (basal cell carcinoma of skin) History of esophageal stricture Degenerative joint disease of knee Arthritis Iron deficiency anemia History of dysphagia Trigeminal neuralgia Hearing loss Carotid stenosis, asymptomatic Elevated cholesterol PVD (peripheral vascular disease) Surgical History (Updated 11/02/21 @ 09:46 by TERENCE Roche) Hx of tooth extraction History of total left hip replacement Hx of colonoscopy History of esophagogastroduodenoscopy (EGD) Family History Father Hx of heat stroke Mother History of heart attack Social History Household Members: Spouse Alcohol intake: current Alcohol intake frequency: does not drink Review of Systems Const All systems reviewed & are unremarkable except as noted in HPI and below Physical Exam Vital Signs: Last Vital Signs Pulse 80 02/11/23 08:06 Resp 14 02/11/23 08:06 BP 146/82 H 02/11/23 08:06 Pulse Ox 96 02/11/23 08:06 Oxygen Delivery Method Room Air 02/11/23 08:06 BMI result Body Mass Index 24.5 General: Appears afebrile. Alert and oriented. Mood and affect appropriate. Follows and participates in conversation appropriately. Respiratory effort is unlabored. Able to transition from sit to stand unassisted. Ambulates with bilaterally normal heel strike and toe off. Lead insertion site is clean dry and intact. Dressings changed in the office today. Limited left shoulder ROM. Tenderness overlying the bicipital groove. Results Reviewed Results Reviewed: No imaging is available for review. Assessment & Plan Assessment & Plan (1) Intractable low back pain: Code(s): M54.59 - Other low back pain (2) Bicipital tendinitis: Code(s): M75.20 - Bicipital tendinitis, unspecified shoulder (3) Rotator cuff tendinitis: Code(s): M75.80 - Other shoulder lesions, unspecified shoulder Plan The dressing was changed today. The site was clean, dry, and intact. The patient will follow up in seven weeks for removal of sprint device. Will schedule her for a left bicipital tendon and subacromial injection. Discussed the risks and benefits of the procedure with the patient in detail. All questions were answered. The patient is on board with the plan. Justification for interventional therapy: ? Patient with average pain > 6/10 ? Patient has exhausted conservative therapy Scribed for Dr. Be by Dawit Uriostegui, medical office assistant, on 02/11/2023. I, Dr. Be, have personally reviewed and agree with the information entered by the scribe. Coding Level of Care Code Est Pt Level 4 (75941) Diagnoses Intractable low back pain M54.59 Bicipital tendinitis M75.20 Rotator cuff tendinitis M75.80
[2023-02-11 08:06] VITALS: BP 146/82; PULSE 80; RESP 14; O2SAT 96; BMI 24.5
== END 2023-02-11 08:19 | disposition home or self-care (01) ==
PROVIDERS: PCP Internal Medicine; Visit Provider Internal Medicine
DX: M54.59 Other low back pain (principal); M75.20 Bicipital tendinitis, unspecified shoulder; M75.80 Other shoulder lesions, unspecified shoulder
CPT/HCPCS: 99024

== ENCOUNTER → 2023-02-11 07:56 | Outpatient (BNVA) | payer MEDICARE, BC, SELFPAY | PROVIDERS: PCP Internal Medicine; Visit Provider Internal Medicine ==

== ENCOUNTER → 2023-02-17 09:55 | Outpatient (BNVA) | payer MEDICARE, BC, SELFPAY | PROVIDERS: PCP Internal Medicine; Visit Provider Internal Medicine ==

== ENCOUNTER 2023-02-25 09:01 | Outpatient (AMB) | payer MEDICARE, BC, SELFPAY ==
--- NOTE | 2023-02-25 09:02 | A.OFFVIS_ITS ---
Intake Vital Signs 02/25/23 09:03 Height 5 ft 5 in BP 177/79 H Blood Pressure Location Rt brachial Position Sitting Respiration 12 Pulse 75 Pulse Source Pulse Oximeter Intake Visit Reasons: SHOULDER INJECTION/CONFIRMED Allergies celecoxib [Celebrex] Allergy (Unknown, Verified 02/17/23 11:35) hives hydromorphone [Dilaudid] Allergy (Unknown, Verified 02/17/23 11:35) nausea/vomitting naproxen [Aleve] Allergy (Unknown, Verified 02/17/23 11:35) elevated bp tramadol Allergy (Unknown, Verified 02/17/23 11:35) vomit coconut Allergy (Verified 02/17/23 11:35) nausea, rash diphenhydramine [From Benadryl] Allergy (Verified 02/17/23 11:35) unknown cetirizine [From Zyrtec] Adverse Reaction (Mild, Verified 02/17/23 11:35) Itching atorvastatin [From Lipitor] Adverse Reaction (Unknown, Verified 02/17/23 11:35) stiffness codeine Adverse Reaction (Verified 02/17/23 11:35) sensitive eggs Allergy (Mild, Uncoded 12/31/22 09:00) Unknown sulphur Allergy (Mild, Uncoded 12/31/22 09:00) Unknown valium Allergy (Mild, Uncoded 12/31/22 09:00) Unknown HPI SHOULDER INJECTION/CONFIRMED HPI Details 87-year-old female who presents today to the office for a shoulder injection. Denies any recent cough, cold, infection, fever or other significant changes in medical history since last office visit. Back pain is relatively well controlled. Past Procedures: 02/02/23: Lumbar Medial Branch Nerve Sti mulation Lead Placement, SPR (Sprint) System, left L3: Moderate initial relief. 10/27/22: Therapeutic Left Sacroiliac Nesha int Injections-90% pain relief for 1 week. [facility] Medical History (Updated 02/11/23 @ 10:50 by Yossi Be MD) Chronic pain syndrome Disc degeneration, lumbar Spondylosis of lumbar spine Osteoarthritis of right hip BCC (basal cell carcinoma of skin) History of esophageal stricture Degenerative joint disease of knee Arthritis Iron deficiency anemia History of dysphagia Trigeminal neuralgia Hearing loss Carotid stenosis, asymptomatic Elevated cholesterol PVD (peripheral vascular disease) Surgical History (Updated 11/02/21 @ 09:46 by TERENCE Roche) Hx of tooth extraction History of total left hip replacement Hx of colonoscopy History of esophagogastroduodenoscopy (EGD) Family History Father Hx of heat stroke Mother History of heart attack Social History Household Members: Spouse Alcohol intake: current Alcohol intake frequency: does not drink Review of Systems Const All systems reviewed & are unremarkable except as noted in HPI and below Physical Exam Vital Signs: Last Vital Signs Pulse 75 02/25/23 09:03 Resp 12 02/25/23 09:03 BP 177/79 H 02/25/23 09:03 General: Appears afebrile. Alert and oriented. Mood and affect appropriate. Follows and participates in conversation appropriately. Respiratory effort is unlabored. Able to transition from sit to stand unassisted. Ambulates with bilaterally normal heel strike and toe off. Office Procedures Joint Injection/Drain Joint Injection/Drain Details: Left bicipital groove and tendon injection, ultrasound guided Primary Site: left shoulder Prep: site was prepped using sterile technique Injected: 40 mg of, Kenalog, with 3 mL of (0.25% ropivacaine) and other (bicipital groove tendon) Approach Used: anterior (Under ultrasound guidance) Procedure: The patient tolerated the procedure well Coding Details: An ultrasound image of the injection was taken and stored in the permanent record. 11298 - Bicipital Groove Injection Procedure code (CPT) selection complete Results Reviewed Results Reviewed: No imaging is available for review. Assessment & Plan Assessment & Plan (1) Bicipital tendinitis: Code(s): M75.20 - Bicipital tendinitis, unspecified shoulder Plan Patient is status post left bicipital groove and tendon injection, ultrasound guided. Patient tolerated procedure well and was discharged home in stable condition with discharge instructions. All questions were answered. We will follow-up in two weeks via telephone or in clinic to assess response to therapy. A follow-up appointment was made during today's visit. Scribed for Dr. Be by Dawit Uriostegui, medical dir, on 02/25/2023. I, Dr. Josi small, have personally reviewed and agree with the information entered by the scribe. Coding Level of Care Code Procedure Only Diagnoses Bicipital tendinitis M75.20 CPT Codes Coding - Joint 1: 24236 - Bicipital Groove Injection ([id number])
[2023-02-25 09:03] VITALS: BP 177/79; PULSE 75; RESP 12
== END 2023-02-25 09:28 | disposition home or self-care (01) ==
PROVIDERS: PCP Internal Medicine; Visit Provider Internal Medicine
DX: M75.22 Bicipital tendinitis, left shoulder (principal)
CPT/HCPCS: 20550

== ENCOUNTER → 2023-02-25 09:01 | Outpatient (BNVA) | payer MEDICARE, BC, SELFPAY | PROVIDERS: PCP Internal Medicine; Visit Provider Internal Medicine | DX: M75.32 Calcific tendinitis of left shoulder (principal) | CPT/HCPCS: 20550; J0665; J3301 ==

== ENCOUNTER → 2023-03-04 08:50 | Outpatient (BNVA) | payer MEDICARE, BC, SELFPAY | PROVIDERS: PCP Internal Medicine; Visit Provider Internal Medicine ==

== ENCOUNTER 2023-03-11 08:46 | Outpatient (AMB) | payer MEDICARE, BC, SELFPAY ==
--- NOTE | 2023-03-11 08:52 | A.OFFVIS_ITS ---
Intake Vital Signs 03/11/23 08:58 Height 5 ft 5 in Weight 143 lb BMI 23.8 BP 181/74 H Blood Pressure Location Lt brachial Position Sitting Pulse 73 Pulse Source Pulse Oximeter Pulse Oximetry (%) 97 Oxygen Delivery Method Room Air Intake Visit Reasons: DRESSING CHANGE/confirmed Intake Note: Pain today 0/10 Recruiting And Selection Consultant Required: No Accompanied by: Self / Same As Patient Allergies celecoxib [Celebrex] Allergy (Unknown, Verified 03/11/23 08:59) hives hydromorphone [Dilaudid] Allergy (Unknown, Verified 03/11/23 08:59) nausea/vomitting naproxen [Aleve] Allergy (Unknown, Verified 03/11/23 08:59) elevated bp tramadol Allergy (Unknown, Verified 03/11/23 08:59) vomit coconut Allergy (Verified 03/11/23 08:59) nausea, rash diphenhydramine [From Benadryl] Allergy (Verified 03/11/23 08:59) unknown cetirizine [From Zyrtec] Adverse Reaction (Mild, Verified 03/11/23 08:59) Itching atorvastatin [From Lipitor] Adverse Reaction (Unknown, Verified 03/11/23 08:59) stiffness codeine Adverse Reaction (Verified 03/11/23 08:59) sensitive eggs Allergy (Mild, Uncoded 12/31/22 09:00) Unknown sulphur Allergy (Mild, Uncoded 12/31/22 09:00) Unknown valium Allergy (Mild, Uncoded 12/31/22 09:00) Unknown HPI HPI Comments History of Present Illness Details Patient presents today for Sprint dressing change. Reports 100% ongoing pain relief in the left lower back at current stimulation setting of 40 with improved functioning, range of motion, mobility and sleep. The dressing was removed today. Lead insertion sites look clean, dry, intact, no redness, no swelling, no pathological discharge. Area was cleansed with Chloraprep, applied Bacitracin and covered with Sprint Tegaderm film and gauze dressing. Patient reports minimal pain relief in the left shoulder in the bicipital tendon area since 02/25/23. She reports getting frequent jabbing and sharp pain in her left upper arm and shoulder without warning. Patient is interested to undergo Orthopedic evaluation. She reports history of rotator cuff repair. Currently she has no pain and rates pain at 0/10 but when left shoulder pain comes, she rates it at 12/10. She has tried topical applications, Tylenol and heat therapy without relief. Denies any recent cough, cold, infection, fever or other significant changes in medical history since last office visit. Past Procedures: 02/25/23: Left bicipital groove and tend on injection, ultrasound guided- 02/02/23: Lumbar Medial Branch Nerve Sti mulation Lead Placement, SPR (Sprint) System, left L3: Moderate initial relief. 10/27/22: Therapeutic Left Sacroiliac Nesha int Injections-90% pain relief for [address] Be 10/11/22: 87-year-old female is presenting today f or a follow-up evaluation for low back pain. She will last seen in our clinic in [address] Xie for hip pain. Since then she has had a hip replacement about two years ago. She is currently on Eliquis which is prescribed by her primary care physician for history of recurrent DVT. Her main complaint today is left lower back pain overlying the sacroiliac joint area. She also describes some pain around her waist. Pain is rated as 7 to 9/10 in intensity. It is worst with movements or when she tries to get up. [facility] Medical History Chronic pain syndrome Disc degeneration, lumbar Spondylosis of lumbar spine Osteoarthritis of right hip BCC (basal cell carcinoma of skin) History of esophageal stricture Degenerative joint disease of knee Arthritis Iron deficiency anemia History of dysphagia Trigeminal neuralgia Hearing loss Carotid stenosis, asymptomatic Elevated cholesterol PVD (peripheral vascular disease) Surgical History Hx of tooth extraction History of total left hip replacement Hx of colonoscopy History of esophagogastroduodenoscopy (EGD) Family History Father Hx of heat stroke Mother History of heart attack Social History Household Members: Spouse Alcohol intake: current Alcohol intake frequency: does not drink Review of Systems Const All systems reviewed & are unremarkable except as noted in HPI and below Physical Exam General: Appears afebrile. Alert and oriented. Mood and affect appropriate. Follows and participates in conversation appropriately. Respiratory effort is unlabored. No cough. Able to transition from sit to stand unassisted. Ambulates with bilaterally normal heel strike and toe off. Lead Insertion Site: Lead insertion sites look clean, dry, intact. No pathological discharge, no swelling and no erythema. Lead site dressing changed today in the clinic. Positive paresthesia at 40 left lower back. Extrem General: Yes capillary refill normal, Yes no clubbing, cyanosis or edema and Yes no calf tenderness Left upper extremity: shoulder/upper arm (Limited ROM due to pain.) Details: tenderness (TTP over the bicipital groove. ) Location: over the biceps tendon and normal ROM; no crepitus Assessment & Plan Assessment & Plan (1) Rotator cuff tendinitis: Code(s): M75.80 - Other shoulder lesions, unspecified shoulder (2) Bicipital tendinitis: Code(s): M75.20 - Bicipital tendinitis, unspecified shoulder (3) Intractable low back pain: Code(s): M54.59 - Other low back pain (4) Chronic pain syndrome: Code(s): G89.4 - Chronic pain syndrome (5) Disc degeneration, lumbar: Code(s): M51.36 - Other intervertebral disc degeneration, lumbar region Plan Sprint dressing was changed today. The site was clean, dry, and intact, no pathological discharge. The patient will follow up in March for removal of sprint device. Patient reports minimal to no pain relief s/p left bicipital groove and tendon injection on 02/25/23. She is interested in Orthopedic evaluation with Dr. Underwood. I will submit referral today. All questions and concerns have been answered and patient agreed with the plan. Follow up as needed. Orders: Referrals Orthopedics Referral M75.20 - Bicipital tendinitis, unspecified shoulder, M75.80 - Other shoulder lesions, unspecified shoulder Coding Level of Care Code Est Pt Level 4 (18959) Diagnoses Rotator cuff tendinitis M75.80 Bicipital tendinitis M75.20 Intractable low back pain M54.59 Chronic pain syndrome G89.4 Disc degeneration, lumbar M51.36
[2023-03-11 08:58] VITALS: BP 181/74; PULSE 73; O2SAT 97; BMI 23.8
== END 2023-03-11 09:18 | disposition home or self-care (01) ==
PROVIDERS: PCP Internal Medicine; Visit Provider Nurse Practitioner Family
DX: M75.80 Other shoulder lesions, unspecified shoulder (principal); M75.20 Bicipital tendinitis, unspecified shoulder; M54.59 Other low back pain; G89.4 Chronic pain syndrome; M51.36 Other intervertebral disc degeneration, lumbar region
CPT/HCPCS: 99213

== ENCOUNTER → 2023-03-11 08:46 | Outpatient (BNVA) | payer MEDICARE, BC, SELFPAY | PROVIDERS: PCP Internal Medicine; Visit Provider Nurse Practitioner Family | DX: Z48.01 Encounter for change or removal of surgical wound dressing (principal); M75.80 Other shoulder lesions, unspecified shoulder; M75.20 Bicipital tendinitis, unspecified shoulder; M54.59 Other low back pain; G89.4 Chronic pain syndrome; M51.36 Other intervertebral disc degeneration, lumbar region | CPT/HCPCS: 99212 ==

== ENCOUNTER 2023-03-14 08:44 | Outpatient (REF) | payer MEDICARE, BC, SELFPAY ==
--- NOTE | ~2023-03-14 | XR_ITS ---
EXAMINATION: XR SHOULDER, LEFT CLINICAL INFORMATION: Pain in left shoulder. COMPARISON: None available. TECHNIQUE: 2 views of the left shoulder. FINDINGS: 3 surgical anchors in the lateral aspect of the humeral head with concave defect, possibly postsurgical, along the superior lateral aspect of the humeral head, of indeterminate age. Mild degenerative changes in the acromioclavicular joint with joint space narrowing and hypertrophic change. Degenerative changes with hypertrophic change along the glenoid. The bones are diffusely demineralized. XR/XR shoulder LT min 2V IMPRESSION: 3 surgical anchors in the lateral aspect of the humeral head with concave defect, possibly postsurgical, along the superior lateral aspect of the humeral head, of indeterminate age. Mild degenerative changes. Correlation with clinical exam recommended to determine further management. If there is concern for fracture or other underlying pathology, MRI could be obtained for further evaluation.
== END 2023-03-14 08:45 | disposition home or self-care (01) ==
LOC: HO.HOSX 08:44
PROVIDERS: PCP Internal Medicine; Visit Provider Orthopaedic Surgery
DX: M70.71 Other bursitis of hip, right hip (principal); M25.512 Pain in left shoulder; Z79.899 Other long term (current) drug therapy
CPT/HCPCS: 20610; 73030; 99202; J1020

== ENCOUNTER 2023-03-14 08:44 | Outpatient (AMB) | payer MEDICARE, BC, SELFPAY ==
[2023-03-14 09:01] VITALS: BMI 23.8
--- NOTE | 2023-03-14 09:01 | MHC.OFFVIS ---
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 The patient did undergo left shoulder rotator cuff repair surgery in 2010. The patient states that her left shoulder pain and weakness have gotten worse over the last year in spite of continued non operative treatments. She did have a cortisone injection given into her left shoulder earlier this month which gave her minimal relief. She has tried Tylenol and anti-inflammatory medicines which gave her only mild relief. The patient describes her right hip pain as achy in nature. Most of the pain is along the lateral aspect of her right hip. She did undergo bilateral total hip replacement surgeries several years ago. She denies any groin pain. She denies any fevers or chills. Patient reports she had an injection in her left shoulder on 02/25/2023 didn't get relief she has also had surgery on her left shoulder 10/2010. Her pain is sharp in nature and is getting worse. Allergies celecoxib [Celebrex] Allergy (Unknown, Verified 03/14/23 09:06) hives hydromorphone [Dilaudid] Allergy (Unknown, Verified 03/14/23 09:06) nausea/vomitting naproxen [Aleve] Allergy (Unknown, Verified 03/14/23 09:06) elevated bp tramadol Allergy (Unknown, Verified 03/14/23 09:06) vomit coconut Allergy (Verified 03/14/23 09:06) nausea, rash diphenhydramine [From Benadryl] Allergy (Verified 03/14/23 09:06) unknown cetirizine [From Zyrtec] Adverse Reaction (Mild, Verified 03/14/23 09:06) Itching atorvastatin [From Lipitor] Adverse Reaction (Unknown, Verified 03/14/23 09:06) stiffness codeine Adverse Reaction (Verified 03/14/23 09:06) sensitive eggs Allergy (Mild, Uncoded 12/31/22 09:00) Unknown sulphur Allergy (Mild, Uncoded 12/31/22 09:00) Unknown valium Allergy (Mild, Uncoded 12/31/22 09:00) Unknown Medication List - Last Reconciled 03/14/23 by Morgan Underwood MD apixaban (Eliquis) 2.5 mg PO BID calcium citrate 400 mg PO DAILY cholecalciferol (vitamin D3) 25 mcg PO DAILY coenzyme Q10 100 mg PO DAILY cyclosporine 0.05% (Restasis) 1 drp ophthalmic (eye) Q12H furosemide 40 mg PO DAILY mecobalamin (vitamin B12) 1,000 mcg PO DAILY multivitamin 1 tab PO DAILY pantoprazole 20 mg PO DAILY PFSH Medical History Chronic pain syndrome Disc degeneration, lumbar Spondylosis of lumbar spine Osteoarthritis of right hip BCC (basal cell carcinoma of skin) History of esophageal stricture Degenerative joint disease of knee Arthritis Iron deficiency anemia History of dysphagia Trigeminal neuralgia Hearing loss Carotid stenosis, asymptomatic Elevated cholesterol PVD (peripheral vascular disease) Surgical History Hx of shoulder surgery (~10/2010) Hx of tooth extraction History of total left hip replacement Hx of colonoscopy History of esophagogastroduodenoscopy (EGD) Family History Father Hx of heat stroke Mother History of heart attack Social History Household Members: Spouse Alcohol intake: current Alcohol intake frequency: does not drink Physical Exam Vital Signs: BMI result Body Mass Index 23.8 Const Other: Well-nourished well-developed very friendly female awake alert and oriented x3 in no acute distress Extrem Other: Bilateral lower extremity examination shows good capillary refill, no skin lesions noted, normal sensation light touch Right hip examination shows full range of motion when compared to her left hip, minimal discomfort with range of motion, tenderness over her bursa, no overlying skin lesions Left shoulder examination shows that the surgical incisions are well healed, no erythema, 4/5 strength with supraspinatus testing, positive impingement signs, no instability Office Procedures Joint Injection/Drain Joint Injection/Drain Primary Site: other (Right hip greater trochanteric bursa) Prep: site was prepped using aseptic technique Injected: 40 mg of, DepoMedrol and 1% plain lidocaine Procedure: The patient tolerated the procedure well Coding 40056 - Large joint Procedure code (CPT) selection complete Results Reviewed Results Reviewed: X-rays of the patient's left shoulder show bony changes consistent with distal clavicle excision and acromioplasty, 3 suture anchors within the proximal humerus with no signs of loosening Assessment & Plan Assessment & Plan (1) Bursitis of hip, right: Code(s): M70.71 - Other bursitis of hip, right hip (2) Left shoulder pain: Code(s): M25.512 - Pain in left shoulder Plan Ms. Allen presents with progressively worsening left shoulder pain and weakness possibly due to a recurrent rotator cuff tear. Thus, I will send the patient for an MRI of her left shoulder for further evaluation. I will see her back once the MRI is completed to discuss the findings and treatment options. The patient also has right hip pain due to greater trochanteric bursitis. I had a lengthy discussion with the patient regarding the treatment options. The risks and benefits of a right hip bursa cortisone injection were discussed at length with the patient. The patient wished to proceed with the injection. She tolerated the injection well. She will continue with a home exercise program. Feel free to call me at any time should questions regarding her orthopedic management arise. Thank you very much for asking me to see this very friendly patient. I spent 22 minutes in reviewing the patient's records and imaging studies, seeing the patient and documenting in the medical record. Orders: Orders XR shoulder LT min 2V Today M25.512 - Pain in left shoulder MR shoulder LT wo con Today M75.122 - Complete rotator cuff tear or rupture of left shoulder, not specified as traumatic AMB Joint Injection/Aspiration Today M70.71 - Other bursitis of hip, right hip Coding Level of Care Code New Pt Level 2 (86870) Diagnoses Bursitis of hip, right M70.71 Left shoulder pain M25.512 CPT Codes Coding - 44106 Large joint: 62498 - Large joint ([id number])
== END 2023-03-14 09:47 | disposition home or self-care (01) ==
PROVIDERS: PCP Internal Medicine; Visit Provider Orthopaedic Surgery
DX: M70.71 Other bursitis of hip, right hip (principal); M25.512 Pain in left shoulder
CPT/HCPCS: 20610; 99202

== ENCOUNTER → 2023-03-18 08:47 | Outpatient (BNVA) | payer MEDICARE, BC, SELFPAY | PROVIDERS: PCP Internal Medicine; Visit Provider Nurse Practitioner Family ==

== ENCOUNTER 2023-03-25 08:48 | Outpatient (AMB) | payer MEDICARE, BC, SELFPAY ==
--- NOTE | 2023-03-25 08:50 | A.OFFVIS_ITS ---
Intake Vital Signs 03/25/23 08:58 Height 5 ft 5 in Weight 142 lb 6 oz BMI 23.7 BP 153/67 H Blood Pressure Location Lt brachial Position Sitting Pulse 77 Pulse Source Pulse Oximeter Pulse Oximetry (%) 98 Oxygen Delivery Method Room Air Intake Visit Reasons: DRESSING CHANGE/confirmed Lead Housekeeper Required: No Accompanied by: Self / Same As Patient Allergies celecoxib [Celebrex] Allergy (Unknown, Verified 03/25/23 08:58) hives hydromorphone [Dilaudid] Allergy (Unknown, Verified 03/25/23 08:58) nausea/vomitting naproxen [Aleve] Allergy (Unknown, Verified 03/25/23 08:58) elevated bp tramadol Allergy (Unknown, Verified 03/25/23 08:58) vomit coconut Allergy (Verified 03/25/23 08:58) nausea, rash diphenhydramine [From Benadryl] Allergy (Verified 03/25/23 08:58) unknown cetirizine [From Zyrtec] Adverse Reaction (Mild, Verified 03/25/23 08:58) Itching atorvastatin [From Lipitor] Adverse Reaction (Unknown, Verified 03/25/23 08:58) stiffness codeine Adverse Reaction (Verified 03/25/23 08:58) sensitive eggs Allergy (Mild, Uncoded 12/31/22 09:00) Unknown sulphur Allergy (Mild, Uncoded 12/31/22 09:00) Unknown valium Allergy (Mild, Uncoded 12/31/22 09:00) Unknown HPI HPI Comments History of Present Illness Details Patient presents today for Sprint dressing change. Patient continues to report 80-90% ongoing pain relief in the left lower back with stimulation s etting of 40-45 with improved functioning, range of motion, mobility and sleep. Patient reports she went to a wedding last week with Sprint device turned off and had no pain during that time. She is very content with pain relief PNS trial provides her so far. Patient reports she gets occasional sharp pains in her lower back throughout the day but no pain when she uses Sprint device. The dressing was removed today. Lead insertion sites look clean, dry, intact, no redness, no swelling, no pathological discharge. Area was cleansed with Chloraprep, applied Bacitracin and covered with Sprint Tegaderm film and gauze dressing. Denies any recent cough, cold, infection, fever or other significant changes in medical history since last office visit. Past Procedures: 02/25/23: Left bicipital groove and tend on injection, ultrasound guided-minimal pain relief 02/02/23: Lumbar Medial Branch Nerve Sti mulation Lead Placement, SPR (Sprint) System, left L3: Moderate initial relief. 10/27/22: Therapeutic Left Sacroiliac Nesha int Injections-90% pain relief for [address] Be 10/11/22: 87-year-old female is presenting today f or a follow-up evaluation for low back pain. She will last seen in our clinic in [address] Xie for hip pain. Since then she has had a hip replacement about two years ago. She is currently on Eliquis which is prescribed by her primary care physician for history of recurrent DVT. Her main complaint today is left lower back pain overlying the sacroiliac joint area. She also describes some pain around her waist. Pain is rated as 7 to 9/10 in intensity. It is worst with movements or when she tries to get up. [facility] Medical History Chronic pain syndrome Disc degeneration, lumbar Spondylosis of lumbar spine Osteoarthritis of right hip BCC (basal cell carcinoma of skin) History of esophageal stricture Degenerative joint disease of knee Arthritis Iron deficiency anemia History of dysphagia Trigeminal neuralgia Hearing loss Carotid stenosis, asymptomatic Elevated cholesterol PVD (peripheral vascular disease) Surgical History Hx of shoulder surgery (~10/2010) Hx of tooth extraction History of total left hip replacement Hx of colonoscopy History of esophagogastroduodenoscopy (EGD) Family History Father Hx of heat stroke Mother History of heart attack Social History Household Members: Spouse Alcohol intake: current Alcohol intake frequency: does not drink Review of Systems Const All systems reviewed & are unremarkable except as noted in HPI and below Physical Exam General: Appears afebrile. Alert and oriented. Mood and affect appropriate. Follows and participates in conversation appropriately. Respiratory effort is unlabored. No cough. Able to transition from sit to stand unassisted. Ambulates with bilaterally normal heel strike and toe off. Lead Insertion Site: Lead insertion sites look clean, dry, intact. No pathological discharge, no swelling and no erythema. Lead site dressing changed today in the clinic. Positive parasthesia left lower back at 40-45. Assessment & Plan Assessment & Plan (1) Intractable low back pain: Code(s): M54.59 - Other low back pain (2) Chronic pain syndrome: Code(s): G89.4 - Chronic pain syndrome (3) Disc degeneration, lumbar: Code(s): M51.36 - Other intervertebral disc degeneration, lumbar region (4) Spondylosis of lumbar spine: Code(s): M47.816 - Spondylosis without myelopathy or radiculopathy, lumbar region Plan Sprint dressing was changed today. The site was clean, dry, and intact, no pathological discharge, no tenderness, no swelling or erythema. The patient will follow up in March for removal of Sprint PNS device and return to office for weekly dressing changes. All questions and concerns have been answered and patient agreed with the plan. Follow up as needed. Coding Level of Care Code Est Pt Level 3 (26626) Diagnoses Intractable low back pain M54.59 Chronic pain syndrome G89.4 Disc degeneration, lumbar M51.36 Spondylosis of lumbar spine M47.816
[2023-03-25 08:58] VITALS: BP 153/67; PULSE 77; O2SAT 98; BMI 23.7
== END 2023-03-25 09:13 | disposition home or self-care (01) ==
PROVIDERS: PCP Internal Medicine; Visit Provider Nurse Practitioner Family
DX: M54.59 Other low back pain (principal); G89.4 Chronic pain syndrome; M51.36 Other intervertebral disc degeneration, lumbar region; M47.816 Spondylosis without myelopathy or radiculopathy, lumbar region
CPT/HCPCS: 99213

== ENCOUNTER → 2023-03-25 08:48 | Outpatient (BNVA) | payer MEDICARE, BC, SELFPAY | PROVIDERS: PCP Internal Medicine; Visit Provider Nurse Practitioner Family | DX: M54.59 Other low back pain (principal); M51.36 Other intervertebral disc degeneration, lumbar region; M47.816 Spondylosis without myelopathy or radiculopathy, lumbar region; G89.4 Chronic pain syndrome | CPT/HCPCS: 99212 ==

== ENCOUNTER 2023-04-01 08:48 | Outpatient (AMB) | payer MEDICARE, BC, SELFPAY ==
--- NOTE | 2023-04-01 08:58 | MHC.OFFVIS ---
Intake Vital Signs 04/01/23 09:00 Height 5 ft 5 in Weight 145 lb BMI 24.1 BP 150/70 H Blood Pressure Location Lt brachial Position Sitting Respiration 12 Pulse 80 Pulse Source Pulse Oximeter Pulse Oximetry (%) 97 Oxygen Delivery Method Room Air Intake Visit Reasons: Sprint removal Allergies celecoxib [Celebrex] Allergy (Unknown, Verified 04/01/23 09:02) hives hydromorphone [Dilaudid] Allergy (Unknown, Verified 04/01/23 09:02) nausea/vomitting naproxen [Aleve] Allergy (Unknown, Verified 04/01/23 09:02) elevated bp tramadol Allergy (Unknown, Verified 04/01/23 09:02) vomit coconut Allergy (Verified 04/01/23 09:02) nausea, rash diphenhydramine [From Benadryl] Allergy (Verified 04/01/23 09:02) unknown cetirizine [From Zyrtec] Adverse Reaction (Mild, Verified 04/01/23 09:02) Itching atorvastatin [From Lipitor] Adverse Reaction (Unknown, Verified 04/01/23 09:02) stiffness codeine Adverse Reaction (Verified 04/01/23 09:02) sensitive eggs Allergy (Mild, Uncoded 04/01/23 09:02) Unknown sulphur Allergy (Mild, Uncoded 04/01/23 09:02) Unknown valium Allergy (Mild, Uncoded 04/01/23 09:02) Unknown Medication List - Last Reconciled 04/01/23 by Belle Allen LPN apixaban (Eliquis) 2.5 mg PO BID calcium citrate 400 mg PO DAILY cholecalciferol (vitamin D3) 25 mcg PO DAILY coenzyme Q10 100 mg PO DAILY cyclosporine 0.05% (Restasis) 1 drp ophthalmic (eye) Q12H furosemide 40 mg PO DAILY mecobalamin (vitamin B12) 1,000 mcg PO DAILY multivitamin 1 tab PO DAILY pantoprazole 20 mg PO DAILY HPI HPI Comments History of Present Illness Details Patient presents today for Left L3 MB Sprint removal. Patient denies any pain at this time and reports Sprint has provided her significant pain relief for axial low back pain on left side. She continues to endorse pain across her lower back with prolonged sitting and bending forward and relieves with walking or standing. Patient reports she restarted swimming at local [facility] center and notes this has been helpful for her joints. She has upcoming follow up with Orthopedic provider to review her left shoulder MRI. Patient is interested to proceed with therapeutic ZACHARY injection to address her discogenic low back pain. Denies any recent cough, cold, infection, fever, numbness, tingling, weakness, any significant changes in her medical history, medications or recent hospitalizations. The dressing was removed today. Lead insertion sites look clean, dry, intact, no redness, no swelling, no pathological discharge. Area was cleansed with Chloraprep. Lead pulled with the tip intact and the area was cleansed again with Chloraprep, applied Bacitracin and covered it with gauze and Tegaderm film dressing. Past Procedures: 04/01/23: L3 Medial Branch Sprint removal-100% axial low back pain relief 02/25/23: Left bicipital groove and tendon injection, ultrasound guided-minimal pain relief 02/02/23: Lumbar L3 Medial Branch Sprint placement: Moderate initial relief. 10/27/22: Therapeutic Left Sacroiliac Joint Injections-90% pain relief for [address] Be 10/11/22: 87-year-old female is presenting today for a follow-up evaluation for low back pain. She will last seen in our clinic in [address] Xie for hip pain. Since then she has had a hip replacement about two years ago. She is currently on Eliquis which is prescribed by her primary care physician for history of recurrent DVT. Her main complaint today is left lower back pain overlying the sacroiliac joint area. She also describes some pain around her waist. Pain is rated as 7 to 9/10 in intensity. It is worst with movements or when she tries to get up. [facility] Medical History Chronic pain syndrome Disc degeneration, lumbar Spondylosis of lumbar spine Osteoarthritis of right hip BCC (basal cell carcinoma of skin) History of esophageal stricture Degenerative joint disease of knee Arthritis Iron deficiency anemia History of dysphagia Trigeminal neuralgia Hearing loss Carotid stenosis, asymptomatic Elevated cholesterol PVD (peripheral vascular disease) Surgical History Hx of shoulder surgery (~10/2010) Hx of tooth extraction History of total left hip replacement Hx of colonoscopy History of esophagogastroduodenoscopy (EGD) Family History Father Hx of heat stroke Mother History of heart attack Social History Household Members: Spouse Alcohol intake: current Alcohol intake frequency: does not drink Review of Systems Const All systems reviewed & are unremarkable except as noted in HPI and below Physical Exam Vital Signs: Last Vital Signs Pulse 80 04/01/23 09:00 Resp 12 04/01/23 09:00 BP 150/70 H 04/01/23 09:00 Pulse Ox 97 04/01/23 09:00 Oxygen Delivery Method Room Air 04/01/23 09:00 BMI result Body Mass Index 24.1 General: Appears afebrile. Alert and oriented. Mood and affect appropriate. Follows and participates in conversation appropriately. Respiratory effort is unlabored. No cough. Able to transition from sit to stand unassisted. Ambulates with bilaterally normal heel strike and toe off. Lead Insertion Site: Lead insertion site looks clean, dry, intact.? Lead pulled with tip intact. Back/Spine/Pelvis Thoracic/Lumbar Spine: thoracic and lumbar spine normal to inspection, Lasegue's sign negative, straight leg raise negative bilaterally, No thoracic spinal tenderness and lumbar spinal tenderness (increased pain with lumbar flexion) at L4 and at L5 Results Reviewed Results Reviewed: 08/09/22: X-RAY EXAM OF LOWER SPINE WITH OBLIQUES. 03/22/20: MR LUMBAR SPINE Assessment & Plan Assessment & Plan (1) Intractable low back pain: Code(s): M54.59 - Other low back pain (2) Disc degeneration, lumbar: Code(s): M51.36 - Other intervertebral disc degeneration, lumbar region (3) Spondylosis of lumbar spine: Code(s): M47.816 - Spondylosis without myelopathy or radiculopathy, lumbar region (4) Vertebrogenic low back pain: Code(s): M54.51 - Vertebrogenic low back pain (5) Lumbar spinal stenosis: Code(s): M48.061 - Spinal stenosis, lumbar region without neurogenic claudication Plan Patient presented for Sprint removal today. Lead pulled with tip intact. Patient is content with significant axial low back pain relief with 2 months of Sprint trial and will continue to monitor her pain levels. For discogenic pain, we will proceed with L4-L5 Interlaminar Parasagittal ZACHARY with local and fluoroscopy. Expectations, risks and benefits were reviewed. Patient is aware she will be contacted to schedule this procedure. Patient on anticoagulation (Eliquis) and instructions given on when to pause with prescribing physician permission. All questions were answered and the patient is in agreement of plan. Follow-up after injections and sooner as needed. Medications: New lidocaine 5% 1 patch topical DAILY 30 days 30 ea 1RF pain M47.816 - Spondylosis without myelopathy or radiculopathy, lumbar region, M51.36 - Other intervertebral disc degeneration, lumbar region, M54.59 - Other low back pain Coding Level of Care Code Est Pt Level 4 (54686) Diagnoses Intractable low back pain M54.59 Disc degeneration, lumbar M51.36 Spondylosis of lumbar spine M47.816 Vertebrogenic low back pain M54.51 Lumbar spinal stenosis M48.061
[2023-04-01 09:00] VITALS: BP 150/70; PULSE 80; RESP 12; O2SAT 97; BMI 24.1
== END 2023-04-01 09:43 | disposition home or self-care (01) ==
PROVIDERS: PCP Internal Medicine; Visit Provider Nurse Practitioner Family
DX: M54.59 Other low back pain (principal); M51.36 Other intervertebral disc degeneration, lumbar region; M47.816 Spondylosis without myelopathy or radiculopathy, lumbar region; M54.51 Vertebrogenic low back pain; M48.061 Spinal stenosis, lumbar region without neurogenic claudication
CPT/HCPCS: 99214

== ENCOUNTER → 2023-04-01 08:48 | Outpatient (BNVA) | payer MEDICARE, BC, SELFPAY | PROVIDERS: PCP Internal Medicine; Visit Provider Internal Medicine | DX: M54.59 Other low back pain (principal); M51.36 Other intervertebral disc degeneration, lumbar region; M47.816 Spondylosis without myelopathy or radiculopathy, lumbar region; M54.51 Vertebrogenic low back pain; M48.061 Spinal stenosis, lumbar region without neurogenic claudication | CPT/HCPCS: 99212 ==

== ENCOUNTER 2023-04-14 06:08 | Outpatient (REF) | payer MEDICARE, BC, SELFPAY ==
--- NOTE | ~2023-04-14 | FL_ITS ---
CLINICAL INDICATION: Back pain. FINDINGS: Technical assistance and equipment were provided by the Department of Radiology during intraoperative fluoroscopy for percutaneous injection. 2, limited fluoroscopic spot images are submitted. A radiologist was not present during the procedure. The tip of a percutaneous needle projects over the region of the spinal canal on the side labeled left. There are insufficient anatomical landmarks to identify the exact levels of percutaneous needle placement. Contrast is injected; it is difficult to ascertain the exact location of the contrast based on this limited image alone. The images are available for review on PACS. TOTAL FLUOROSCOPY TIME: 0.1 minutes. DOSE AREA PRODUCT: 0.01 mGy-m2 (milligray-meter squared) FL/FL guidance in treatment room IMPRESSION: Technical assistance and equipment provided by the Department of Radiology during intraoperative fluoroscopy, as above. Please see operative report for further details.
== END 2023-04-14 06:09 | disposition home or self-care (01) ==
LOC: CF 06:08
PROVIDERS: Visit Provider Internal Medicine
DX: M54.51 Vertebrogenic low back pain (principal); M54.16 Radiculopathy, lumbar region
CPT/HCPCS: 62323; J3301; Q9967

== ENCOUNTER 2023-04-14 08:30 | Outpatient (AMB) | payer MEDICARE, BC, SELFPAY ==
[2023-04-14 08:42] VITALS: BP 132/82; PULSE 97; RESP 16; O2SAT 97; BMI 24.1
--- NOTE | 2023-04-14 08:42 | MHC.OFFVIS ---
Intake Vital Signs 04/14/23 08:42 04/14/23 09:32 Height 5 ft 5 in 5 ft 5 in Weight 145 lb 145 lb BMI 24.1 24.1 BP 132/82 138/82 Blood Pressure Location Lt brachial Lt brachial Position Sitting Sitting Respiration 16 18 Pulse 97 76 Pulse Source Pulse Oximeter Pulse Oximeter Pulse Oximetry (%) 97 98 Oxygen Delivery Method Room Air Room Air Comment Pre-Op Post-Op Intake Visit Reasons: Artur L4-L5 interlaminar parasagittal ZACHARY Allergies celecoxib [Celebrex] Allergy (Unknown, Verified 04/01/23 09:02) hives hydromorphone [Dilaudid] Allergy (Unknown, Verified 04/01/23 09:02) nausea/vomitting naproxen [Aleve] Allergy (Unknown, Verified 04/01/23 09:02) elevated bp tramadol Allergy (Unknown, Verified 04/01/23 09:02) vomit coconut Allergy (Verified 04/01/23 09:02) nausea, rash diphenhydramine [From Benadryl] Allergy (Verified 04/01/23 09:02) unknown cetirizine [From Zyrtec] Adverse Reaction (Mild, Verified 04/01/23 09:02) Itching atorvastatin [From Lipitor] Adverse Reaction (Unknown, Verified 04/01/23 09:02) stiffness codeine Adverse Reaction (Verified 04/01/23 09:02) sensitive eggs Allergy (Mild, Uncoded 04/01/23 09:02) Unknown sulphur Allergy (Mild, Uncoded 04/01/23 09:02) Unknown valium Allergy (Mild, Uncoded 04/01/23 09:02) Unknown HPI Artur L4-L5 interlaminar parasagittal ZACHARY HPI Details Patient presents for scheduled procedure. Denies any recent cough, cold, infection, fever or other significant changes in medical history since last office visit. [facility], [facility] Medical History Chronic pain syndrome Disc degeneration, lumbar Spondylosis of lumbar spine Osteoarthritis of right hip BCC (basal cell carcinoma of skin) History of esophageal stricture Degenerative joint disease of knee Arthritis Iron deficiency anemia History of dysphagia Trigeminal neuralgia Hearing loss Carotid stenosis, asymptomatic Elevated cholesterol PVD (peripheral vascular disease) Surgical History Hx of shoulder surgery (~10/2010) Hx of tooth extraction History of total left hip replacement Hx of colonoscopy History of esophagogastroduodenoscopy (EGD) Family History Father Hx of heat stroke Mother History of heart attack Social History Household Members: Spouse Alcohol intake: current Alcohol intake frequency: does not drink Physical Exam Vital Signs: Last Vital Signs Pulse 76 04/14/23 09:32 Resp 18 04/14/23 09:32 BP 138/82 04/14/23 09:32 Pulse Ox 98 04/14/23 09:32 Oxygen Delivery Method Room Air 04/14/23 09:32 BMI result Body Mass Index 24.1 Office Procedures Joint Injection/Drain Joint Injection/Drain Details: Interlaminar epidural steroid injection, L4/5, Left parasaggital After obtaining written consent, pre-procedure blood pressure and heart rate were stable and recorded in the nursing record. The patient was placed in the prone position. The lumbar area was widely prepped with chloraprep and draped in sterile fashion. Fluoroscopic guidance was used to identify the desired interlaminar space and for needle placement. Subcutaneous 0.5% lidocaine was used to anesthetize the skin overlying the target. A 20-gauge Bryant needle was advanced to the epidural space using loss of resistance to contrast technique under fluoroscopic AP and contralateral oblique views. There was no evidence of heme or CSF and no paresthesias were elicited with needle placement. Confirmation of epidural needle placement was performed with 1cc of omnipaque 180. Next 3 ml 0.5% lidocaine mixed with 40 mg triamcinolone was administered epidurally with no pain elicited on injection. The needle tract tubing was then cleared with 1 ml of 0.5% lidocaine. The needle was removed, skin cleansed and a sterile bandage was applied. The patient tolerated the procedure well and no complications were encountered. Following the procedure the patient's vital signs were stable. The patient was discharged home in good condition with post-procedural instructions. Time Out: Immediately prior to the procedure, the following was verbally confirmed that there is a signed consent form and that the correct patient, planned procedure, site and side are consistent with documentation and that necessary equipment and/or blood products are available prior to the start of the case. Complications: none EBL: <5 cc Coding 17070 - Caudal/Lumbar Epidural/Interlaminar with fluoroscopy Procedure code (CPT) selection complete Assessment & Plan Assessment & Plan (1) Lumbar radiculopathy: Code(s): M54.16 - Radiculopathy, lumbar region Plan Patient is status post left parasagittal interlaminar L4-5 epidural steroid injection. Patient tolerated procedure well and was discharged home in stable condition with discharge instructions. All questions were answered. Notable hypertrophy of the ligament flavum was noted during the injection. I discussed minimally invasive lumbar decompression with the patient as a viable option for her symptoms of back pain secondary to spinal stenosis. Vertiflex interspinous spacer placement would also be a viable option. Orders: Orders FL guidance in treatment room Today M54.51 - Vertebrogenic low back pain Coding Level of Care Code Procedure Only Diagnoses Lumbar radiculopathy M54.16 CPT Codes Coding - Joint 11: 85606 - Caudal/Lumbar Epidural/Interlaminar with fluoroscopy ([id number])
[2023-04-14 09:32] VITALS: BP 138/82; PULSE 76; RESP 18; O2SAT 98; BMI 24.1
== END 2023-04-14 09:39 | disposition home or self-care (01) ==
LOC: HO.PMCPRC 08:32
PROVIDERS: PCP Internal Medicine; Visit Provider Internal Medicine
DX: M54.16 Radiculopathy, lumbar region (principal)
CPT/HCPCS: 62323

== ENCOUNTER 2023-04-28 08:31 | Outpatient (AMB) | payer MEDICARE, BC, SELFPAY ==
--- NOTE | 2023-04-28 08:33 | A.OFFVIS_ITS ---
Intake Vital Signs 04/28/23 08:42 Height 5 ft 5 in Weight 142 lb 3 oz BMI 23.7 BP 176/78 H Blood Pressure Location Rt brachial Position Sitting Pulse 82 Pulse Source Pulse Oximeter Pulse Oximetry (%) 98 Oxygen Delivery Method Room Air Intake Visit Reasons: L Arm Pain Intake Note: Pain today 03/26 Utility Bill Collection Clerk Required: No Accompanied by: Self / Same As Patient Allergies celecoxib [Celebrex] Allergy (Unknown, Verified 04/28/23 08:56) hives hydromorphone [Dilaudid] Allergy (Unknown, Verified 04/28/23 08:56) nausea/vomitting naproxen [Aleve] Allergy (Unknown, Verified 04/28/23 08:56) elevated bp tramadol Allergy (Unknown, Verified 04/28/23 08:56) vomit coconut Allergy (Verified 04/28/23 08:56) nausea, rash diphenhydramine [From Benadryl] Allergy (Verified 04/28/23 08:56) unknown cetirizine [From Zyrtec] Adverse Reaction (Mild, Verified 04/28/23 08:56) Itching atorvastatin [From Lipitor] Adverse Reaction (Unknown, Verified 04/28/23 08:56) stiffness codeine Adverse Reaction (Verified 04/28/23 08:56) sensitive eggs Allergy (Mild, Uncoded 04/01/23 09:02) Unknown sulphur Allergy (Mild, Uncoded 04/01/23 09:02) Unknown valium Allergy (Mild, Uncoded 04/01/23 09:02) Unknown HPI HPI Comments History of Present Illness Details Patient presents today to follow up for increase left shoulder and upper arm pain with weakness. She reports completing left shoulder MRI at [facility] that was ordered by Dr. Underwood. She does not have follow up with Orthopedic office as of yet. Patient also reports tenderness to right greater trochanteric bursa which is irritated with walking or sleeping on right side. Last right GTB steroid injection was on 03/14/23 with good relief for 1.5 months. She also reports swimming is getting harder for her due to episodic stabbing and aching pain sensations with left arm use or swimming. Patient would like to follow up with Dr. Underwood re: MRI findings and consider therapeutic steroid US or fluoroscopy guided injections. MRI report is noted below. She has been taking Tylenol and applying ice packs with minimal relief. Denies any recent cough, cold, infection, fever, numbness, tingling, weakness, any significant changes in her medical history, medications or recent hospitalizations. Past Procedures: 04/01/23: L3 Medial Branch Sprint remova l-100% axial low back pain relief 03/14/23: Right hip greater trochanteric bursa steroid injection-Dr. Underwood, good relief 02/25/23: Left bicipital groove and tend on injection, ultrasound guided-minimal pain relief 02/02/23: Lumbar L3 Medial Branch Sprint placement: Moderate initial relief. 10/27/22: Therapeutic Left Sacroiliac Nesha int Injections-90% pain relief for [address] Be 10/11/22: 87-year-old female is presenting today f or a follow-up evaluation for low back pain. She will last seen in our clinic in [address] Xie for hip pain. Since then she has had a hip replacement about two years ago. She is currently on Eliquis which is prescribed by her primary care physician for history of recurrent DVT. Her main complaint today is left lower back pain overlying the sacroiliac joint area. She also describes some pain around her waist. Pain is rated as 7 to 9/10 in intensity. It is worst with movements or when she tries to get up. [facility] Medical History Chronic pain syndrome Disc degeneration, lumbar Spondylosis of lumbar spine Osteoarthritis of right hip BCC (basal cell carcinoma of skin) History of esophageal stricture Degenerative joint disease of knee Arthritis Iron deficiency anemia History of dysphagia Trigeminal neuralgia Hearing loss Carotid stenosis, asymptomatic Elevated cholesterol PVD (peripheral vascular disease) Surgical History Hx of shoulder surgery (~10/2010) Hx of tooth extraction History of total left hip replacement Hx of colonoscopy History of esophagogastroduodenoscopy (EGD) Family History Father Hx of heat stroke Mother History of heart attack Social History Household Members: Spouse Alcohol intake: current Alcohol intake frequency: does not drink Review of Systems Const All systems reviewed & are unremarkable except as noted in HPI and below Physical Exam Vital Signs: Last Vital Signs Pulse 82 04/28/23 08:42 BP 176/78 H 04/28/23 08:42 Pulse Ox 98 04/28/23 08:42 Oxygen Delivery Method Room Air 04/28/23 08:42 BMI result Body Mass Index 23.7 General: Appears afebrile. Alert and oriented. Mood and affect appropriate. Follows and participates in conversation appropriately. Respiratory effort is unlabored. Able to transition from sit to stand unassisted. Ambulates with bilaterally normal heel strike and toe off. Extrem General: Yes capillary refill normal, Yes no clubbing, cyanosis or edema and Yes no calf tenderness Left upper extremity: shoulder/upper arm (limited ROM due to pain) Details: in spection abnormal, tenderness Location: of the A-C joint and over the subacromial bursa and crepitus; no swelling Right lower extremity: hip/thigh Details: tenderness Location: of the hip Location: over the greater trochanter Results Reviewed Results Reviewed: MR SHOULDER WITHOUT CONTRAST LEFT 04/04/23 at [facility] INDICATION: Left shoulder pain. Prior surgery. Question tear. FINDINGS: There is mild degenerative spurring at the acromioclavicular joint. There is attenuation of the undersurface of the acromion presumably related to prior acromioplasty. There is mild edema in the subacromial/subdeltoid bursa keeping with mild bursal inflammation. There is prominent susceptibility artifact at the anterior greater tuberosity from prior rotator cuff repair. Allowing for the artifact and prior surgical change there is no evidence of recurrent supraspinatus tear or tendon retraction. There is no significant supraspinatus muscle atrophy. The infraspinatus and teres minor are intact. The subscapularis is intact. The long head of the biceps tendon is intact and descends normally within the b icipital groove. There is mild glenohumeral joint osteoarthritis. There is full-thickness cartilage loss at the central superior glenoid with mild subchondral edema and cyst formation. There is degenerative truncation/tear at the posterior superior labrum with a small 4 mm adjacent paralabral cyst. There is a small glenohumeral joint effusion with synovial hypertrophy/synovitis.. There is mild glenohumeral spurring. Normal visualized proximal humerus. Normal muscle signal is present. No soft tissue mass is identified. IMPRESSION: 1. Mild glenohumeral joint osteoarthritis with joint effusion and synovitis. 2. Status post rotator cuff repair without evidence of recurrent tear. There is prominent susceptibility artifact as indicated. 3. Mild subacromial bursal edema/inflammation. Assessment & Plan Assessment & Plan (1) Bursitis of hip, right: Code(s): M70.71 - Other bursitis of hip, right hip (2) Left shoulder pain: Code(s): M25.512 - Pain in left shoulder (3) Osteoarthritis of right shoulder: Code(s): M19.011 - Primary osteoarthritis, right shoulder Plan Discussed recent left shoulder MRI results with patient, findings are noted above. Patient is interested to undergo therapeutic injections for left shoulder and right hip after she follows up with Dr. Underwood. Expectations, risks and benefits were reviewed. Continue Tylenol, ice and heat therapy. Patient cannot take NSAIDs due to adverse side effects. Questions and concerns have been answered and patient agrees with the plan. Follow-up as needed. Coding Level of Care Code Est Pt Level 3 (33497) Diagnoses Bursitis of hip, right M70.71 Left shoulder pain M25.512 Osteoarthritis of right shoulder M19.011
[2023-04-28 08:42] VITALS: BP 176/78; PULSE 82; O2SAT 98; BMI 23.7
== END 2023-04-28 09:09 | disposition home or self-care (01) ==
PROVIDERS: PCP Internal Medicine; Visit Provider Nurse Practitioner Family
DX: M70.71 Other bursitis of hip, right hip (principal); M25.512 Pain in left shoulder; M19.011 Primary osteoarthritis, right shoulder
CPT/HCPCS: 99213

== ENCOUNTER → 2023-04-28 08:31 | Outpatient (BNVA) | payer MEDICARE, BC, SELFPAY | PROVIDERS: PCP Internal Medicine; Visit Provider Nurse Practitioner Family | DX: M70.71 Other bursitis of hip, right hip (principal); M25.512 Pain in left shoulder; M19.011 Primary osteoarthritis, right shoulder | CPT/HCPCS: 99212 ==

== ENCOUNTER 2023-05-11 10:57 | Outpatient (AMB) | payer MEDICARE, BC, SELFPAY ==
[2023-05-11 11:00] VITALS: BMI 23.6
--- NOTE | 2023-05-11 11:00 | MHC.OFFVIS ---
Intake Vital Signs 05/11/23 11:00 Height 5 ft 5 in Weight 142 lb BMI 23.6 Intake Visit Reasons: ov- LT shoulder MRI Review Intake Note: Magdalena is a 88 year old Right hand dominate female who presents for her MRI review of her Left shoulder. The patient did undergo left shoulder rotator cuff repair surgery. She reports mild weakness when lifting her hand above shoulder height. She has not had a cortisone injection recently. She has taken Tylenol which gives her mild relief. She wishes to hold off on further surgery if at all possible. Allergies celecoxib [Celebrex] Allergy (Unknown, Verified 05/11/23 11:03) hives hydromorphone [Dilaudid] Allergy (Unknown, Verified 05/11/23 11:03) nausea/vomitting naproxen [Aleve] Allergy (Unknown, Verified 05/11/23 11:03) elevated bp tramadol Allergy (Unknown, Verified 05/11/23 11:03) vomit coconut Allergy (Verified 05/11/23 11:03) nausea, rash diphenhydramine [From Benadryl] Allergy (Verified 05/11/23 11:03) unknown cetirizine [From Zyrtec] Adverse Reaction (Mild, Verified 05/11/23 11:03) Itching atorvastatin [From Lipitor] Adverse Reaction (Unknown, Verified 05/11/23 11:03) stiffness codeine Adverse Reaction (Verified 05/11/23 11:03) sensitive eggs Allergy (Mild, Uncoded 04/01/23 09:02) Unknown sulphur Allergy (Mild, Uncoded 04/01/23 09:02) Unknown valium Allergy (Mild, Uncoded 04/01/23 09:02) Unknown Medication List - Last Reconciled 05/11/23 by Morgan Underwood MD apixaban (Eliquis) 2.5 mg PO BID calcium citrate 400 mg PO DAILY cholecalciferol (vitamin D3) 25 mcg PO DAILY coenzyme Q10 100 mg PO DAILY cyclosporine 0.05% (Restasis) 1 drp ophthalmic (eye) Q12H furosemide 40 mg PO DAILY lidocaine 5% 1 patch topical DAILY 30 days mecobalamin (vitamin B12) 1,000 mcg PO DAILY multivitamin 1 tab PO DAILY pantoprazole 20 mg PO DAILY [facility] Medical History Chronic pain syndrome Disc degeneration, lumbar Spondylosis of lumbar spine Osteoarthritis of right hip BCC (basal cell carcinoma of skin) History of esophageal stricture Degenerative joint disease of knee Arthritis Iron deficiency anemia History of dysphagia Trigeminal neuralgia Hearing loss Carotid stenosis, asymptomatic Elevated cholesterol PVD (peripheral vascular disease) Surgical History Hx of shoulder surgery (~10/2010) Hx of tooth extraction History of total left hip replacement Hx of colonoscopy History of esophagogastroduodenoscopy (EGD) Family History Father Hx of heat stroke Mother History of heart attack Social History Household Members: Spouse Alcohol intake: current Alcohol intake frequency: does not drink Current occupational status: retired Current occupation: Right hand dominate Physical Exam Vital Signs: BMI result Body Mass Index 23.6 Const Other: Well-nourished well-developed very friendly female awake alert and oriented x3 in no acute distress Extrem Other: Bilateral upper extremity examination shows good capillary refill, no skin lesions noted, normal sensation light touch Left shoulder examination shows almost full range of motion when compared to her right shoulder, 4+ out of 5 strength with supraspinatus testing, positive impingement signs, no instability Office Procedures Joint Injection/Drain Joint Injection/Drain Primary Site: left shoulder Prep: site was prepped using aseptic technique Injected: 40 mg of, DepoMedrol and 1% plain lidocaine Procedure: The patient tolerated the procedure well Coding 18983 - Large joint Procedure code (CPT) selection complete Results Reviewed Results Reviewed: MRI of the patient's left shoulder shows a type 2 acromion, signal change within the supraspinatus tendon due to rotator cuff tendinosis, no rotator cuff tear noting, mild to moderate glenohumeral joint degenerative changes Assessment & Plan Assessment & Plan (1) Impingement syndrome of left shoulder: Code(s): M75.42 - Impingement syndrome of left shoulder Plan Ms. Allen presents with left shoulder pain due to impingement syndrome and glenohumeral joint arthritis. I had a lengthy discussion with the patient regarding the treatment options. The risks and benefits of a left shoulder cortisone injection were discussed at length with the patient. The patient wished to proceed with the injection. She tolerated the injection well. She will continue with her activity modifications. She will follow up with me on an as-needed basis should her symptoms not plateau at an unacceptable level over the next few months. Feel free to call me at any time should questions regarding her orthopedic management arise. I spent 22 minutes in reviewing the patient's records and imaging studies, seeing the patient and documenting in the medical record. Orders: Orders AMB Joint Injection/Aspiration Today M75.42 - Impingement syndrome of left shoulder Coding Level of Care Code Est Pt Level 2 (50689) Diagnoses Impingement syndrome of left shoulder M75.42 CPT Codes Coding - 14483 Large joint: 10090 - Large joint ([id number])
== END 2023-05-11 11:35 | disposition home or self-care (01) ==
PROVIDERS: PCP Internal Medicine; Visit Provider Orthopaedic Surgery
DX: M75.42 Impingement syndrome of left shoulder (principal)
CPT/HCPCS: 20610; 99213

== ENCOUNTER → 2023-05-11 10:57 | Outpatient (BNVA) | payer MEDICARE, BC, SELFPAY | PROVIDERS: PCP Internal Medicine; Visit Provider Orthopaedic Surgery | DX: M75.42 Impingement syndrome of left shoulder (principal); Z96.612 Presence of left artificial shoulder joint; Z98.890 Other specified postprocedural states | CPT/HCPCS: 20610; 99212; J1020 ==

== ENCOUNTER 2023-05-13 08:11 | Outpatient (REF) | payer MEDICARE, BC, SELFPAY ==
[2023-05-13 11:15] LABS: Troponin-I High Sensitivity 3.1 ng/L (<3.5-17.0)
== END 2023-05-13 08:12 | disposition home or self-care (01) ==
LOC: HO.LAB 08:11
PROVIDERS: PCP Internal Medicine; Visit Provider Internal Medicine
DX: R07.9 Chest pain, unspecified (principal); M54.16 Radiculopathy, lumbar region; Z79.899 Other long term (current) drug therapy
CPT/HCPCS: 36415; 84484; 99212

== ENCOUNTER 2023-05-13 08:11 | Outpatient (AMB) | payer MEDICARE, BC, SELFPAY ==
[2023-05-13 08:31] VITALS: BP 140/60; PULSE 88; RESP 12; O2SAT 95; BMI 23.6
--- NOTE | 2023-05-13 08:31 | A.OFFVIS_ITS ---
Intake Vital Signs 05/13/23 08:31 Height 5 ft 5 in Weight 142 lb BMI 23.6 BP 140/60 H Blood Pressure Location Lt brachial Position Sitting Respiration 12 Pulse 88 Pulse Source Pulse Oximeter Pulse Oximetry (%) 95 Oxygen Delivery Method Room Air Intake Visit Reasons: s/p mercedes L4-L5 interlaminar parasagittal ZACHARY Intake Note: BP taken manually - Pt stated she was having chest pressure last evening, no dyspnea/dizziness. 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 - I encouraged her to call her PCP at the conclusion of todays visit Allergies celecoxib [Celebrex] Allergy (Unknown, Verified 05/13/23 08:34) hives hydromorphone [Dilaudid] Allergy (Unknown, Verified 05/13/23 08:34) nausea/vomitting naproxen [Aleve] Allergy (Unknown, Verified 05/13/23 08:34) elevated bp tramadol Allergy (Unknown, Verified 05/13/23 08:34) vomit coconut Allergy (Verified 05/13/23 08:34) nausea, rash diphenhydramine [From Benadryl] Allergy (Verified 05/13/23 08:34) unknown cetirizine [From Zyrtec] Adverse Reaction (Mild, Verified 05/13/23 08:34) Itching atorvastatin [From Lipitor] Adverse Reaction (Unknown, Verified 05/13/23 08:34) stiffness codeine Adverse Reaction (Verified 05/13/23 08:34) sensitive eggs Allergy (Mild, Uncoded 05/13/23 08:34) Unknown sulphur Allergy (Mild, Uncoded 05/13/23 08:34) Unknown valium Allergy (Mild, Uncoded 05/13/23 08:34) Unknown Medication List - Last Reconciled 05/13/23 by Belle Allen LPN apixaban (Eliquis) 2.5 mg PO BID atorvastatin 10 mg PO QWEEK calcium citrate 400 mg PO DAILY cholecalciferol (vitamin D3) 25 mcg PO DAILY coenzyme Q10 100 mg PO DAILY cyclosporine 0.05% (Restasis) 1 drp ophthalmic (eye) Q12H furosemide 40 mg PO DAILY lidocaine 5% 1 patch topical DAILY 30 days mecobalamin (vitamin B12) 1,000 mcg PO DAILY multivitamin 1 tab PO DAILY pantoprazole 20 mg PO DAILY HPI s/p mercedes L4-L5 interlaminar parasagittal ZACHARY HPI Details 88-year-old female who presents today to the office for a status post bilateral L4-L5 interlaminar parasagittal ZACHARY. The patient reports >80% relief following the procedure. She received a cortisone injection in her left shoulder on 05/11/2023 and has had sharp pain at the injection site. Later that day, her blood pressure reading was elevated. She states that she was playing cards last night and started experiencing tightness in the chest. She walked for a few minutes, and it was resolved. She continues to have soreness at the site. She had left rotator cuff surgery, and post-procedure, she had an MRI scan, which was unremarkable. She reports low back pain and hip pain, which aggravate with prolonged sitting. Past Procedures: 04/14/23: Interlaminar epidural steroid injection, L4/5, Left parasaggital: >80% relief. 04/01/23: L3 Medial Branch Sprint remova l (Kimberley Jones) -100% axial low back pain relief 02/25/23: Left bicipital groove and tend on injection, ultrasound guided-minimal pain relief 02/02/23: Lumbar L3 Medial Branch Sprint placement: Moderate initial relief. 10/27/22: Therapeutic Left Sacroiliac Nesha int Injections-90% pain relief for 1 week. COUNTS INCLUDE 234 BEDS AT THE [facility] Medical History Chronic pain syndrome Disc degeneration, lumbar Spondylosis of lumbar spine Osteoarthritis of right hip BCC (basal cell carcinoma of skin) History of esophageal stricture Degenerative joint disease of knee Arthritis Iron deficiency anemia History of dysphagia Trigeminal neuralgia Hearing loss Carotid stenosis, asymptomatic Elevated cholesterol PVD (peripheral vascular disease) Surgical History Hx of shoulder surgery (~10/2010) Hx of tooth extraction History of total left hip replacement Hx of colonoscopy History of esophagogastroduodenoscopy (EGD) Family History Father Hx of heat stroke Mother History of heart attack Social History Household Members: Spouse Alcohol intake: current Alcohol intake frequency: does not drink Current occupational status: retired Current occupation: Right hand dominate Review of Systems Const All systems reviewed & are unremarkable except as noted in HPI and below Physical Exam Vital Signs: Last Vital Signs Pulse 88 05/13/23 08:31 Resp 12 05/13/23 08:31 BP 140/60 H 05/13/23 08:31 Pulse Ox 95 05/13/23 08:31 Oxygen Delivery Method Room Air 05/13/23 08:31 BMI result Body Mass Index 23.6 General: Appears afebrile. Alert and oriented. Mood and affect appropriate. Follows and participates in conversation appropriately. Respiratory effort is unlabored. Able to transition from sit to stand unassisted. Ambulates with bilaterally normal heel strike and toe off. Results Reviewed Results Reviewed: No imaging is available for review. Assessment & Plan Assessment & Plan (1) Chest pain: Code(s): R07.9 - Chest pain, unspecified (2) Lumbar radiculopathy: Code(s): M54.16 - Radiculopathy, lumbar region Plan The patient?s blood pressure reading was elevated, and she had an episode of chest pain and tightness after receiving a cortisone injection on 05/11/2023 from Orthopedics.?I will order a troponin-I high sensitivity test for further evaluation of her episode of chest pain. She will also discuss this event with her PCP. With respect to her low back pain, she will follow-up as needed. Scribed for Dr. Be by Dawit Uriostegui, medical representative, on 05/13/2023. I, Dr. Be, have personally reviewed and agree with the information entered by the scribe. Orders: Orders Troponin-I High Sensitivity 05/13/23 R07.9 - Chest pain, unspecified Coding Level of Care Code Est Pt Level 4 (25160) Diagnoses Chest pain R07.9 Lumbar radiculopathy M54.16
== END 2023-05-13 09:12 | disposition home or self-care (01) ==
PROVIDERS: PCP Internal Medicine; Visit Provider Internal Medicine
DX: R07.9 Chest pain, unspecified (principal); M54.16 Radiculopathy, lumbar region
CPT/HCPCS: 99213

== ENCOUNTER 2023-06-01 06:31 | Outpatient (REF) | payer MEDICARE, BC, SELFPAY ==
--- NOTE | ~2023-06-01 | XR_ITS ---
EXAMINATION: XR PELVIS CLINICAL INFORMATION: Pain in the right hip COMPARISON: None available. TECHNIQUE: AP view of the pelvis. FINDINGS: Patient is status post bilateral hip arthroplasty with well positioned prosthesis. There is no fracture seen. There is heterotopic bone formation in the soft tissues of left hip. Sacroiliac joints are unremarkable. XR/XR pelvis 1-2V IMPRESSION: Status post bilateral hip arthroplasty with well-positioned prosthesis.
== END 2023-06-01 06:32 | disposition home or self-care (01) ==
LOC: HO.HOSX 06:31
PROVIDERS: Visit Provider Orthopaedic Surgery
DX: M25.551 Pain in right hip (principal); M25.552 Pain in left hip
CPT/HCPCS: 72170; 99212

== ENCOUNTER 2023-06-01 09:33 | Outpatient (AMB) | payer MEDICARE, BC, SELFPAY ==
[2023-06-01 09:37] VITALS: BMI 23.6
--- NOTE | 2023-06-01 09:37 | MHC.OFFVIS ---
Vital Signs 06/01/23 09:37 Height 5 ft 5 in Weight 142 lb BMI 23.6 Intake Visit Reasons: Trochanteric bursitis, right hip Intake Note: Magdalena is a 88 year old female who presents for a follow up of Right hip pain. The patient reports mild discomfort along the lateral aspect of her right hip. She has undergone bilateral total hip replacement surgeries in the past. The patient states that she may have had a reaction to the cortisone injection given into her right hip greater trochanteric bursa on 03/14/2023. The patient states that she felt like her heart rate increased following the injection. She wishes to hold off on further injections if at all possible. Allergies celecoxib [Celebrex] Allergy (Unknown, Verified 06/01/23 10:22) hives hydromorphone [Dilaudid] Allergy (Unknown, Verified 06/01/23 10:22) nausea/vomitting naproxen [Aleve] Allergy (Unknown, Verified 06/01/23 10:22) elevated bp tramadol Allergy (Unknown, Verified 06/01/23 10:22) vomit coconut Allergy (Verified 06/01/23 10:22) nausea, rash diphenhydramine [From Benadryl] Allergy (Verified 06/01/23 10:22) unknown cetirizine [From Zyrtec] Adverse Reaction (Mild, Verified 06/01/23 10:22) Itching atorvastatin [From Lipitor] Adverse Reaction (Unknown, Verified 06/01/23 10:22) stiffness codeine Adverse Reaction (Verified 06/01/23 10:22) sensitive eggs Allergy (Mild, Uncoded 05/13/23 08:34) Unknown sulphur Allergy (Mild, Uncoded 05/13/23 08:34) Unknown valium Allergy (Mild, Uncoded 05/13/23 08:34) Unknown Medication List - Last Reconciled 06/01/23 by Morgan Underwood MD apixaban (Eliquis) 2.5 mg PO BID atorvastatin 10 mg PO QWEEK calcium citrate 400 mg PO DAILY cholecalciferol (vitamin D3) 25 mcg PO DAILY coenzyme Q10 100 mg PO DAILY cyclosporine 0.05% (Restasis) 1 drp ophthalmic (eye) Q12H furosemide 40 mg PO DAILY lidocaine 5% 1 patch topical DAILY 30 days mecobalamin (vitamin B12) 1,000 mcg PO DAILY multivitamin 1 tab PO DAILY pantoprazole 20 mg PO DAILY PFSH Medical History Chronic pain syndrome Disc degeneration, lumbar Spondylosis of lumbar spine Osteoarthritis of right hip BCC (basal cell carcinoma of skin) History of esophageal stricture Degenerative joint disease of knee Arthritis Iron deficiency anemia History of dysphagia Trigeminal neuralgia Hearing loss Carotid stenosis, asymptomatic Elevated cholesterol PVD (peripheral vascular disease) Surgical History Hx of shoulder surgery (~10/2010) Hx of tooth extraction History of total left hip replacement Hx of colonoscopy History of esophagogastroduodenoscopy (EGD) Family History Father Hx of heat stroke Mother History of heart attack Social History Household Members: Spouse Alcohol intake: current Alcohol intake frequency: does not drink Current occupational status: retired Current occupation: Right hand dominate Physical Exam Vital Signs: BMI result Body Mass Index 23.6 Const Other: Well-nourished well-developed very friendly female awake alert and oriented x3 in no acute distress Extrem Other: Bilateral lower extremity examination shows good capillary refill, no skin lesions noted, normal sensation light touch Bilateral hip examination shows that the surgical incisions are well healed, no erythema, minimal discomfort with range of motion, mild tenderness to palpation over her bilateral greater trochanteric bursa Results Reviewed Results Reviewed: X-rays of the patient's bilateral hips taken today show total hip arthroplasties in good position with no signs of loosening, no acute bony abnormalities Assessment & Plan Assessment & Plan (1) Trochanteric bursitis of right hip: Code(s): M70.61 - Trochanteric bursitis, right hip Plan Ms. Allen continues to do well after undergoing bilateral total hip replacement surgeries. She does have intermittent discomfort along the lateral aspect of her right hip due to greater trochanteric bursitis. At this point the patient's symptoms are tolerable to her. She will continue with her home exercise program. She will follow up with me on an as-needed basis should her symptoms worsen in any way. Feel free to call me at any time should questions regarding her orthopedic management arise. I spent 22 minutes in reviewing the patient's records and imaging studies, seeing the patient and documenting in the medical record. Orders: Orders XR pelvis 1-2V 06/01/23 M25.551 - Pain in right hip, M25.552 - Pain in left hip
== END 2023-06-01 10:37 | disposition home or self-care (01) ==
PROVIDERS: PCP Internal Medicine; Visit Provider Orthopaedic Surgery
DX: M70.61 Trochanteric bursitis, right hip (principal)
CPT/HCPCS: 99213

== ENCOUNTER 2025-01-09 10:57 | Outpatient (AMB) | payer MEDICARE, BC, SELFPAY ==
--- NOTE | 2025-01-09 11:15 | A.PHYSOV ---
Vital Signs 01/09/25 11:20 Height 5 ft 4 in Weight 143 lb BMI 24.5 Intake Visit Reasons: NPV Trina Ref- spinal stenosis w/rt sciatica Intake Note: Patient is a 89 year old female here for a new patient office visit. Patient is being referred for Spinal Stenosis of lumbar area with claudication and chronic right sided low back pain with right sided sciatica. Information And Referral Director Required: No Allergies celecoxib (Celebrex) Allergy (Unknown, Verified 06/01/23 10:22) hives hydromorphone (Dilaudid) Allergy (Unknown, Verified 06/01/23 10:22) nausea/vomitting naproxen (Aleve) Allergy (Unknown, Verified 06/01/23 10:22) elevated bp tramadol Allergy (Unknown, Verified 06/01/23 10:22) vomit coconut Allergy (Verified 06/01/23 10:22) nausea, rash diphenhydramine (From Benadryl) Allergy (Verified 06/01/23 10:22) unknown cetirizine (From Zyrtec) Adverse Reaction (Mild, Verified 06/01/23 10:22) Itching atorvastatin (From Lipitor) Adverse Reaction (Unknown, Verified 06/01/23 10:22) stiffness codeine Adverse Reaction (Verified 06/01/23 10:22) sensitive eggs Allergy (Mild, Uncoded 05/13/23 08:34) Unknown sulphur Allergy (Mild, Uncoded 05/13/23 08:34) Unknown valium Allergy (Mild, Uncoded 05/13/23 08:34) Unknown HPI Comments Details: History of Present Illness The patient is an 89 year old individual presenting for evaluation of chronic pain. The patient complains of low back pain and a burning sensation in the right buttock. Additionally, the patient experiences burning pain in the feet that is so intense it awakens the patient from sleep. The pain symptoms tend to improve throughout the day with activity and movement, and the patient feels pretty darn good in the evening. Flexion at the waist provides relief, while extension causes some tightness. The current pain level is rated a 3 out of 10. A spinal cord stimulator trial was done in the past but it was temporary and the leads were removed; it is not currently helping with the pain. The patient has a history of blood clots and is on a blood thinner. There is also a history of hip replacement and a rotator cuff issue. The patient is scheduled for a cholecystectomy for a gallbladder issue. The patient has multiple allergies, including cortisone (which causes nausea and vomiting), Aleve, Celebrex, codeine, Dilaudid, tramadol, and Valium. For pain, the patient currently only takes Tylenol. She is not interested in any sort of steroid injections. The patient reports trying to do a daily workout class on TV and also swims. The patient also reports occasional, sharp, sudden-onset pain in the left arm, which occurs without warning. I reviewed the referring provider's no prior to consultation. Pain Description - Location: Low back, right buttock, and bilateral feet. - Quality: Burning in the right buttock and feet. - Severity: Rated as 3/10 currently, but is intense at night. - Timing and Duration: Pain is worse at night, disrupting sleep, and improves throughout the day with activity. - Relieving Factors: Leaning forward, walking, swimming, and general activity. - Interference with function: The pain is most intense at night, waking the patient from sleep and making it difficult to get out of bed. [facility] Medical History Chronic pain syndrome Disc degeneration, lumbar Spondylosis of lumbar spine Osteoarthritis of right hip BCC (basal cell carcinoma of skin) History of esophageal stricture Degenerative joint disease of knee Arthritis Iron deficiency anemia History of dysphagia Trigeminal neuralgia Hearing loss Carotid stenosis, asymptomatic Elevated cholesterol PVD (peripheral vascular disease) Surgical History Hx of shoulder surgery (~10/2010) Hx of tooth extraction History of total left hip replacement Hx of colonoscopy History of esophagogastroduodenoscopy (EGD) Family History Father Hx of heat stroke Mother History of heart attack Social History Household Members: Spouse Alcohol intake: current Alcohol intake frequency: does not drink Current occupational status: retired Current occupation: Right hand dominate Review of Systems Narrative Review of Systems - Musculoskeletal: Reports low back pain, burning pain in the right buttock, and occasional sharp pain in the left arm. - Denies neck pain. - Neurological: Reports burning in bilateral feet, worse at night. - Denies groin pain. - Gastrointestinal: Reports being scheduled for gallbladder removal. - Denies current nausea or vomiting, but reports history of nausea and vomiting with cortisone. - Allergies: Reports allergies to cortisone shots, Aleve, Celebrex, codeine, Dilaudid, eggs, sulphur, tramadol, and Valium. Physical Exam Exam Exam: Physical Exam Lumbar Spine: Examination of her lumbar spine, there is no visible swelling or deformity. She is tender to lower lumbar facets. She is otherwise nontender. Full range of motion of the lumbar spine with pain. She does have an increase in pain with facet loading. Special Tests: Lhermittes sign was negative Heel Toe walk is normal Left straight leg raise: Negative Right straight leg raise: Negative Special tests Mary Beth test is negative Ganslen's test is negative SI Joint compression test negative Lupis test negative Piriformis stretch is negative Lower Extremities: Full range of motion bilateral lower extremities. No calf pain or edema. Neuro: Sensation: Intact to lower extremities bilaterally Strength L2 (Psoas): 5/5 on the left and 5/5 on the right. L3 (Quads): 5/5 on the left and 5/5 on the right. L4 (Ant tibialis): 5/5 on the left and 5/5 on the right. L5 (EHL) 5/5 on the left and 5/5 on the right. S1 (Gastroc): 5/5 on the left and 5/5 on the right. DTR L4: (Patellar) Left 2 Right 1 S1: (Achilles) Left 1 Right 1 Babinski Downgoing No pathologic clonus. No involuntary movement. 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 - Current pain level is 3/10. - Activities of Daily Living: Pain is most severe at night, interfering with sleep and ambulation upon waking. - Pain improves with activity, and the patient feels well in the evenings. - Adverse Effects: The patient reports nausea and vomiting with cortisone injections and has avoided medications like gabapentin due to concerns about side effects. - Affect: The patient expresses a desire for pain relief but is also cautious about treatments and medications. - Aberrant Drug Related Behaviors: None noted; the patient is hesitant to take medications. Plan Patient was informed and verbally consented to the use of an ambient scribe for clinic note documentation during this visit. 1. Chronic Low Back Pain With Right-Sided Sciatica The patient presents with chronic low back pain and right buttock burning, which is suggestive of sciatica. Treatment options are limited due to multiple drug allergies, intolerance to cortisone, and the patient's use of a blood thinner. An MRI is deemed not helpful as the patient is not a candidate for injections or surgery. The plan is to initiate a trial of Lyrica, starting at a low dose twice daily, with the option to increase to three times a day as tolerated, to manage neuropathic pain. A prescription for a topical compound cream will be sent to a specialty pharmacy, which can be applied to the buttock and feet. The patient is also instructed to adjust the Tylenol regimen to two 500 mg tablets up to three times a day for better pain control while staying within a safe dosage. 2. Peripheral Neuropathy Of Lower Extremities The patient reports burning in the feet, especially at night, which is characteristic of peripheral neuropathy. The plan is to manage this with the newly prescribed Lyrica and the topical compound cream, which can be applied to the feet as needed, particularly at night. 3. Cholelithiasis The patient is scheduled for a cholecystectomy. It is uncertain if the gallbladder issue is contributing to the back pain, but we will reassess the patient's pain symptoms after the surgery. We discussed the benefits of proper nutrition and exercise to maintain a healthy body weight to improve longevity and function. We also discussed the benefits of proper lifting techniques, core strengthening and proper posture. Thank you for allowing me to participate in the care of your patient. 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
[2025-01-09 11:20] VITALS: BMI 24.5
--- OUTSIDE RECORDS SUMMARY | 2025-01-09 13:28 | XMS_ITS | Clinical Summary ---
Author Organization [facility] [address] [facility] l[address] Address [address] [place] [address] Phone Care Team Providers Care Account Receivable Clerk Name Role Phone Carmela Blank MD Primary Care Prov ider Allergies Active Allergy Reactions Criticality Noted Date Comments Celecoxib 11/17/2017 Other Reaction(s): Hives/Urticaria Cetirizine 07/17/2020 Codeine 07/17/2020 Diazepam 04/20/2021 Egg 11/24/2016 Other Reaction(s): OTHER Patient does not feel well after eating Gabapentin Itching 12/09/2020 Hydromorphone Hcl Nausea And Vomiting 0 Naproxen Sodium 06/26/2010 Face flushed elevated bp Sulfacetamide Sodium 02/28/2005 told allergy to sulfa as child Tramadol Hcl 09/12/2008 Vomiting- severe Medications carboxymethylce llulose sodium (ARTIFICIAL TEARS, CMC, OPHT) Administer 1-2 drops into affected eye(s). Active ascorbic acid, vitamin C, 500 mg capsule Take 1 capsule by mouth 1 (one) time each day. Active calcium carbonate-vitam in D3 600 mg-5 mcg (200 unit) per tablet Take 1 tablet by mouth 2 (two) times a day. Active coenzyme Q-10 50 mg capsule Take 1 capsule (50 mg total) by mouth 1 (one) time each day. 3 Active CYANOCOBALAMIN, VITAMIN B-12, ORAL Take by mouth 1 (one) time each day. Active cycloSPORINE 0.05 % drops Administer 1 drop into both eyes 2 (two) times a day. 4 Active glucosamine sul-chondroitn- msm 500-200-150 mg tablet Take 1 tablet by mouth 1 (one) time each day. Active latanoprost (XALATAN) 0.005 % ophthalmic solution Administer 1 drop into both eyes at bedtime. 4 Active mv-mn/folic/lut ein/herbal 293 (ALIVE WOMEN'S 50 PLUS GUMMY ORAL) Take by mouth 1 (one) time each day. Active polyvinyl alcohol (Artificial Tears, polyvin alc,) 1.4 % ophthalmic solution 1-2 gtts ou bid prn 7 Active atorvastatin (LIPITOR) 10 mg tablet Take 1 tablet (10 mg total) by mouth 1 (one) time per week. 90 tablet 5 Active furosemide (LASIX) 40 mg tablet Take 1 tablet (40 mg total) by mouth 2 (two) times a day. 180 tablet 5 Active pantoprazole (PROTONIX) 20 mg EC tablet Take 1 tablet (20 mg total) by mouth 1 (one) time each day. 90 tablet 5 Active apixaban (Eliquis) 2.5 mg tablet Take 1 tablet (2.5 mg total) by mouth 2 (two) times a day. 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 Stage 3a chronic kidney disease ([facility] V24, CM S/[facility] V28) 12/21/2024 Gastroesophageal reflux disease with esophagitis 06/21/2024 Assessment & Plan (06/21/2024 12:54 PM EDT): Peripheral vascular disease ([facility] V24) 2024 Carotid bruit 06/21/2024 Bilateral carotid artery stenosis 06/21/2024 Basal cell carcinoma (BCC) 06/21/2024 Assessment & Plan (06/21/2024 12:54 PM EDT): Orders: Ambulatory referral to Dermatology; Future Glaucoma 06/21/2024 Assessment & Plan (06/21/2024 12:54 PM EDT): Osteoporosis 12/31/2022 Overview (03/07/2024): Bone density 2022 Assessment & Plan (06/21/2024 12:54 PM EDT): Orders: BD Bone Density DXA Axial Skeleton; Future Deep vein thrombosis (DVT) o f femoral vein of both lower extremities ([facility] V24, [facility] V28) 07/21/2020 Assessment & Plan (06/21/2024 12:54 PM EDT): Eosinophilic esophagitis 12/28/2007 Overview (03/07/2024): EGD plus biopsy 11/20 Hip pain 12/28/2007 Overview (03/07/2024): THR 07/24 with post op DVT Diverticulitis of colon without hemorrhage 02/28 Overview (03/07/2024): Flex sig to 25cm 01/20/2001. Incomplete/negative colonoscopy except for diverticulosis to 25 cm 12/13/06. Negative barium enema examination 11/29/06. Consider flexible sigmoidoscopy 2011. Esophageal stricture 02/28/2005 Overview (03/07/2024): Dilation mid . EGD wnl 11/14/2000 on ranitidine rx. Eosinophilic esophagitis, dx 2006. Hearing loss 02/28/2005 Overview (03/07/2024): IMO update Hyperlipidemia 02/28/2005 Assessment & Plan (06/21/2024 12:54 PM EDT): Orders: Lipid panel with reflex to direct LDL; Future Primary localized osteoarthrosis, lower leg 02/14 Overview (03/07/2024): bilateral Trigeminal neuralgia 02/28/2005 Encounters Date Type Department Care Team Description 01/03/2025 Results Follow-Up [address] [phone] Anabela Flood PA 01/02/2025 11:14 AM EST - 01/02/2025 11:59 PM EST Hospital Encounter [facility] Ultrasound [address] [place] [address] Abnormal x-ray Discharge Disposition: Home or Self Care 12/25/2024 2:58 PM EST - 12/25/2024 11:59 PM EST Hospital Encounter Xray - [address] [address] Spinal stenosis of lumbar region with neurogenic claudication; Chronic right-sided low back pain with right-sided sciatica Discharge Disposition: Home or Self Care 12/25/2024 1:10 PM EST Lab Draw Station - [address] [address] Stage 3a chronic kidney disease (CMS/HCC V24, CMS/HCC V28); Chronic deep vein thrombosis (DVT) of femoral vein of both lower extremities (CMS/HCC V24, CMS/[facility] V28) 12/25/2024 Results Follow-Up [address] [address] Solitario Woodruff RN 12/21/2024 11:00 AM EST Office Visit [address] [address] Anabela Flood PA Glaucoma, unspecified glaucoma type, unspecified laterality (Primary Dx); Hyperlipidemia, unspecified hyperlipidemia type; Chronic deep vein thrombosis (DVT) of femoral vein of both lower extremities (CMS/HCC V24, CMS/HCC V28); Leg swelling; Osteoporosis, unspecified osteoporosis type, unspecified pathological fracture presence; Basal cell carcinoma (BCC), unspecified site; Gastroesophageal reflux disease with esophagitis, unspecified whether hemorrhage; Stage 3a chronic kidney disease (CMS/HCC V24, CMS/HCC V28); Spinal stenosis of lumbar region with neurogenic claudication; Chronic right-sided low back pain with right-sided sciatica 11/28/2024 Telephone Adult [address] [address] Carmela Diane MD 11/26/2024 Telephone Adult Medicine [place] [address] [place] [address] Anabela Flood PA from Last 3 Months Immunizations Immunization Administration Dates Next Due H1N1 Inj Preservative Free 02/24/2009 Influenza trivalent, 0.5mL ( Fluad) 65yo and older 12/03/2021,11/26/2020,12/08/2017,11/25 Influenza trivalent, 0.5mL, preservative free (Fluarix; FluLaval; Fluzone) ages 6mo and older (Afluria) 3 years and older 12/05/2013,01/01/2010,12/28/2007,11/24,12/02/2004 Influenza, Unspecified 12/07/2023,12/03/2022,01/2021 Moderna SARS-CoV-2 COVID-19, mRNA, LNP-S, preservative free 12/11/2020,03/18/2020 Pfizer (ages 12 & older) Biv alent, COVID-19 12/03/2021 Pneumococcal conjugate 13 va lent (Prevnar 13, PCV13) 2mo and older 06/02/2012 Pneumococcal polysaccharide 23 valent (Pneumovax 23) 2yo and older 06/05/2002 Td Tetanus diptheria (Tdvax) 7yo and older 03/03/2005,02/14/1991 Zoster Live 09/21/2006 Zoster recombinant (Shingrix ) 19yo and older 04/05/2018 Surgical History Surgery Date Site/Laterality Comments OTHER SURGICAL HISTORY 01/22 PROCEDURE: MAMMOGRAM FLEXIBLE SIGMOIDOSCOPY 1998 PROCEDURE: HI SIGMOIDOSCOPY FLX DX W/COLLJ SPEC BR/WA IF PFRMD FLEXIBLE SIGMOIDOSCOPY 01/20/2001 PROCEDURE: HI SIGMOIDOSCOPY FLX DX W/COLLJ SPEC BR/WA IF PFRMD; COMMENT: Tics only COLONOSCOPY 11/16/2006 PROCEDURE: HI COLONOSCOPY FLX DX W/COLLJ SPEC WHEN PFRMD; COMMENT: Neg/ inc to 25. BE neg. ESOPHAGOGASTRODUODENOSCOPY 12/07/2006 PROCEDURE: HI EGD TRANSORAL BIOPSY SINGLE/MULTIPLE; COMMENT: eosinophilic esophagitis. SHOULDER SURGERY 10/2010 PROCEDURE: HISTORICAL SHOULDER SURGERY; COMMENT: left HIP ARTHROPLASTY 07/2009 PROCEDURE: HISTORICAL HIP REPLACEMENT; COMMENT: left OTHER SURGICAL HISTORY PROCEDURE: HISTORICAL CA BASAL CELL; COMMENT: BCC 08/31 nose (no specifics offered by pathologist) Medical History Medical History Date Comments Esophageal reflux 02/28/2005 DX:Esophageal reflux Trigeminal neuralgia 02/28/2005 DX:Trigemin al neuralgia Other and unspecified hyperlipidemia 02/28/2005 DX:Other and unspecified hyperlipidemia Primary localized osteoarthr osis, lower leg 02/28/2005 DX:Primary localized osteoar throsis, lower leg; COMMENT: bilateral Diverticulosis of colon (wit hout mention of hemorrhage) 02/28/2005 DX:Diverticulosis of colon ( without mention of hemorrhage) Unspecified hearing loss 02/28/2005 DX:Unsp ecified hearing loss Stricture and stenosis of esophagus 02/28/2005 DX:Stricture and stenosis of esophagus; COMMENT: dilation mid Primary localized osteoarthr osis, lower leg 02/28/2005 DX:Primary localized osteoar throsis, lower leg History of total left hip replacement 06/09/2016 DX:History of total left hip replacement DVT of leg (deep venous thro mbosis) (CMS/HCC V24, CMS/HCC V28) 09/15/2009 DX:DVT of leg (deep venous thrombosis) ([facility]); COMMENT: Hx of Left THR 07/24/09 by NEONinfa, dx c DVT l leg 08/21/09, expected length of tx on warfarin 3 months, has repeat U/S scheduled 11/21/09 at [facility] History of basal cell carcinoma DX:History of basal cell carcinoma; COMMENT: 08/31 nose (no specifics offered by pathologist) Glaucoma 06/21/2024 Family History Medical History Relation Name Comments Stroke Father Heart failure Mother [place] 84 Relation Name Status Comments Daughter Martha Alive Father (Age 60) Maternal Grandfather Maternal Grandmother Mother (Age 84) Paternal Grandfather Paternal Grandmother Son 1 Eric Alive x2 Son 2 Arnie Alive Social History Tobacco Use Types Packs/Day Years Used Date Smoking Tobacco: Never Smokeless Tobacco: Never Tobacco Cessation:Counseling Given: No Alcohol Use Standard Drinks/Week Comments No 0 (1 standard drink = 0.6 oz pur e alcohol) Comments No Sex and Gender Information Value Date Recorded Sex Assigned at Female 01/02/2025 11:12 AM EST Legal Sex Female 10:43 PM EST Gender Identity Female 01/02/2025 11:12 AM EST Sexual Orientation Not on file Obstetrics History Last Filed Vital Signs Vital Sign Reading Time Taken Comments Blood Pressure 124/66 12/21/2024 10:50 AM EST Pulse 79 12/21/2024 10:50 AM EST Temperature 36.5 C (97.7 F) 06/21/2024 9:51 AM EDT Respiratory Rate - - Oxygen Saturation 99% 12/21/2024 10:50 AM EST Inhaled Oxygen Concentration - - Weight 67.2 kg (148 lb 3.2 oz) 12/21/2024 10:50 AM EST Height 162.6 cm (5' 4 ) 06/21/2024 9:51 AM EDT Body Mass Index 25.44 06/21/2024 9:51 AM EDT Plan of Treatment Upcoming Encounters Date Type Department Care Team (Late st Contact Info) Description 01/14/2025 10:00 AM EST Consult General Surgery - [place] [address] [facility] [address] [place] [address] Adama Hammond, [address] [address] 01/31/2025 1:30 PM EST Appointment [facility] Bone Density [address] [place] [phone] Health Maintenance Due Date Last Done Comments Social Influencers of Health Screening 01/17/2022 Osteoporosis Screening (Bone Density Screening) 12/30/2024 12/30/2022, 02/20/2020, 01/27/2018 COVID-19 Vaccine (9 - Moderna risk season) 2025 11/28/2024, 05/27/2024, 10/12/2023, Additional history exists Falls Risk Assessment 06/21/2025 06/21/2024, 024 Medicare Annual Wellness Visit 06/21/2025 06/21/2024 Cholesterol Screening (Lipid Panel) 06/21/2029 06/21/2024, 04/20/2021 DTaP,Tdap,and Td Vaccines (4 - Td or Tdap) 10/11/2033 10/12/2023, 03/03/2005, 02/14/1991 Zoster Vaccines Completed 06/08/2018, 03/18, 09/21/2006 RSV Immunization Adult Patients Completed 11/19/2022 Depression Screening Completed 06/21/2024, 09/14/19 24 Influenza Vaccine Completed 11/28/2024, , 12/07/2023, Additional history exists Pneumococcal Vaccine: 50+ Years Completed 11/28/2024, 06/02/2012, 06/05/2002 HIB Vaccines Aged Out No longer eligi ble based on patient's age to complete this topic HPV Vaccines Aged Out No longer eligi ble based on patient's age to complete this topic Hepatitis A Vaccines Aged Out No long er eligible based on patient's age to complete this topic Hepatitis B Vaccines Aged Out No long er eligible based on patient's age to complete this topic IPV Vaccines Aged Out No longer eligi ble based on patient's age to complete this topic MMR Vaccines Aged Out No longer eligi ble based on patient's age to complete this topic Meningococcal ACWY Vaccine Aged Out N o longer eligible based on patient's age to complete this topic Meningococcal B Vaccine Aged Out No l onger eligible based on patient's age to complete this topic RSV Immunization Patients Under 20 months Aged Out No longer eligible based on patient's age to complete this topic Varicella Vaccines Aged Out No longer eligible based on patient's age to complete this topic Procedures Procedure Name Priority Date/Time Associated Diagnosis Comments US ABDOMEN LIMITED Routine 01/02/2025 11 :53 AM EST Abnormal x-ray XR LUMBAR SPINE 4+ VIEWS Routine 12/25/2024 3:10 PM EST Spinal stenosis of lumbar region with neurogenic 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 CBC WITH AUTO DIFFERENTIAL Routine 12/25/2024 1:10 PM EST Chronic deep vein thrombosis (DVT) of femoral vein of both lower extremities (CMS/HCC V24, CMS/HCC V28) CBC AND DIFFERENTIAL Routine 12/25/2024 1:10 PM EST Chronic deep vein thrombosis (DVT) of femoral vein of both lower extremities (CMS/HCC V24, CMS/HCC V28) BASIC METABOLIC PANEL Routine 12/25/2024 1:10 PM EST Stage 3a chronic kidney disease (CMS/HCC V24, CMS/HCC V28) LIPID PANEL WITH REFLEX TO DIRECT LDL Routine 06/21/2024 10:34 AM EDT Hyperlipidemia, unspecified hyperlipidemia type DEPRESSION SCREENING Routine 09/14/2023 FALLS RISK ASSESSMENT Routine 09/14/2023 DXA BONE DENSITY STUDY 1+ SITS AXIAL SKEL Routine 12/30/2022 2:10 PM EST Age-related osteoporosis without current pathological fracture from Last 3 Months or Most Recently Relevant to Health Maintenance Results * US Abdomen Limited (01/02/2025 11:53 AM EST) Anatomical Region Laterality Modality Body Ultrasound 01/02/2025 12:0 1 PM EST Impressions 01/02/2025 12:06 PM EST The calcification on the x-ray correlates to a densely calcified gallbladder. This has been present on remote studies. There is no evidence of invasion of adjacent structures. This is a so-called porcelain gallbladder. Treatment and management Symptomatic patients: Removal of the gallbladder (cholecystectomy) is recommended to alleviate symptoms and reduce cancer risk. Asymptomatic patients: Management is debated and should be discussed with a doctor, considering: Calcification pattern: More extensive calcification patterns may indicate a higher risk. Patient factors: Age, overall health, and other medical conditions are taken into account. Surgical vs. conservative approach: Some surgeons recommend removal for all patients, while others suggest close monitoring with serial ultrasounds, especially in elderly or less healthy patients where the risk of surgery might outweigh the risk of cancer. -------- FINAL REPORT -------- Dictated By: Garland Draper Dictated Date: 01/02/2025 12:01 ET Assigned Physician: Garland Draper Reviewed and Electronically Signed By: Garland Draper Signed Date: 01/02/2025 12:06 ET Workstation ID: [id number] Transcribed By: Self Edit Transcribed Date: 01/02/2025 12:01 ET Narrative 01/02/2025 12:06 PM EST EXAMINATION: ABDOMEN ULTRASOUND, LIMITED CLINICAL INFORMATION: Calcifications in the right upper quadrant on radiography of the spine. COMPARISON: Portions of prior lumbar radiography. TECHNIQUE: Ultrasound of the right upper quadrant FINDINGS: QUALITY: Adequate LI - RADS visualization score = Visualization A: No or minimal limitations SEGOVIA for visualization scoring: A - Minimal limitations-unlikely to meaningfully affect sensitivity B - Moderate limitations-limitations may obscure small masses C - Severe limitations-limitations significantly lowers sensitivity for focal liver lesions PANCREAS: No suspicious abnormality in the visualized portions of the pancreas. Some of the pancreas was obscured. ABDOMINAL AORTA/IVC: No suspicious abnormality in the visualized portions of the IVC. LIVER: The right lobe of the liver measures 14.5 cm. The liver contour is smooth. The portal tracts are visualized. The diaphragm is well visualized. There is no suspicious focal liver lesion BILIARY: There is a oval spherical calcification with shadowing in the expected region of the gallbladder. There is no associated soft tissue mass. No evidence of invasion into the adjacent portions of the liver. COMMON BILE DUCT: The common duct measures 0.8 cm which can be normal in this age group. GALLBLADDER TENDERNESS: There is no reported tenderness to transducer pressure over the gallbladder. KIDNEYS: Right renal length: 8.4 cm in greatest length Left renal length: Not examined. There is no dilation of the intrarenal collecting system in the right kidney. There is no suspicious focal lesion demonstrated in the right kidney. There is no shadowing calculus demonstrated in the right kidney. FLUID: No intraperitoneal fluid demonstrated in the upper abdomen Procedure Note Garland Draper MD - 01/02/2025 EXAMINATION: ABDOMEN ULTRASOUND, LIMITED CLINICAL INFORMATION: Calcifications in the right upper quadrant on radiography of the spine. COMPARISON: Portions of prior lumbar radiography. TECHNIQUE: Ultrasound of the right upper quadrant FINDINGS: QUALITY: Adequate LI - RADS visualization score = Visualization A: No or minimallimitations SEGOVIA for visualization scoring: A - Minimal limitations-unlikely to meaningfully affect sensitivity B - Moderate limitations-limitations may obscure small masses C - Severe limitations-limitations significantly lowers sensitivity forfocal liver lesions PANCREAS: No suspicious abnormality in the visualized portions of thepancreas. Some of the pancreas was obscured. ABDOMINAL AORTA/IVC: No suspicious abnormality in the visualized portionsof the IVC. LIVER: The right lobe of the liver measures 14.5 cm. The liver contour issmooth. The portal tracts are visualized. The diaphragm is wellvisualized. There is no suspicious focal liver lesion BILIARY: There is a oval spherical calcification with shadowing in theexpected region of the gallbladder. There is no associated soft tissuemass. No evidence of invasion into the adjacent portions of the liver. COMMON BILE DUCT: The common duct measures 0.8 cm which can be normal inthis age group. GALLBLADDER TENDERNESS: There is no reported tenderness to transducerpressure over the gallbladder. KIDNEYS: Right renal length: 8.4 cm in greatest length Left renal length: Not examined. There is no dilation of the intrarenal collecting system in the rightkidney. There is no suspicious focal lesion demonstrated in the right kidney. There is no shadowing calculus demonstrated in the right kidney. FLUID: No intraperitoneal fluid demonstrated in the upper abdomen IMPRESSION: The calcification on the x-ray correlates to a densely calcifiedgallbladder. This has been present on remote studies. There is no evidence of invasion of adjacent structures. This is a so-called porcelain gallbladder. Treatment and management Symptomatic patients: Removal of the gallbladder (cholecystectomy) is recommended to alleviatesymptoms and reduce cancer risk. Asymptomatic patients: Management is debated and should be discussed with a doctor,considering: Calcification pattern: More extensive calcification patterns may indicatea higher risk. Patient factors: Age, overall health, and other medical conditions aretaken into account. Surgical vs. conservative approach: Some surgeons recommend removal forall patients, while others suggest close monitoring with serialultrasounds, especially in elderly or less healthy patients where the riskof surgery might outweigh the risk of cancer. -------- FINAL REPORT -------- Dictated By: Garland Draper Dictated Date: 01/02/2025 12:01 ET Assigned Physician: Garland Draper Reviewed and Electronically Signed By: Garland Draper Signed Date: 01/02/2025 12:06 ET Workstation ID: [id number] Transcribed By: Self Edit Transcribed Date: 01/02/2025 12:01 ET us Anabela RAO IMG US PROCEDURES Final Re sult * XR Lumbar Spine 4+ Views (12/25/2024 3:10 PM EST) Anatomical Region Laterality Modality Spine, L-spine Radiographic Stefania ging 12/25/2024 7:12 PM EST Impressions 12/25/2024 7:14 PM EST 1. Moderate to severe degenerative changes of the lumbar spine. 2. Calcification overlying the right upper quadrant. Recommend right upper quadrant ultrasound for further evaluation -------- FINAL REPORT -------- Dictated By: Negin Willis Dictated Date: 12/25/2024 19:12 ET Assigned Physician: Negin Willis Reviewed and Electronically Signed By: Negin Willis Signed Date: 12/25/2024 19:14 ET Workstation ID: [id number] Transcribed By: Self Edit Transcribed Date: 12/25/2024 19:12 ET Narrative 12/25/2024 7:14 PM EST HISTORY: chronic low back pain with sciatica TECHNIQUE: 4 views of the lumbar spine COMPARISON: Lumbar spine radiograph from 08/09/2022 FINDINGS: Vertebral body height is grossly maintained. Decreased disc height at L1-L2, L3- L4 and L5-S1 with endplate sclerosis. There is grade 1 anterolisthesis of L4 on L5. Moderate-sized anterior osteophytes at L1-L2. Moderate facet arthropathy at the lower lumbar spine. Moderate to severe neuroforaminal stenosis at multiple levels. Atherosclerosis of the abdominal aorta. Large calcification overlying the right upper quadrant. Large amount stool throughout the colon. The sacroiliac joints are grossly patent. Patient is status post bilateral hip arthroplasty. Procedure Note Negin Willis MD - 12/25/2024 HISTORY: chronic low back pain with sciatica TECHNIQUE: 4 views of the lumbar spine COMPARISON: Lumbar spine radiograph from 08/09/2022 FINDINGS: Vertebral body height is grossly maintained. Decreased disc height atL1-L2, L3- L4 and L5-S1 with endplate sclerosis. There is grade 1anterolisthesis of L4 on L5. Moderate-sized anterior osteophytes at L1-L2.Moderate facet arthropathy at the lower lumbar spine. Moderate to severeneuroforaminal stenosis at multiple levels. Atherosclerosis of theabdominal aorta. Large calcification overlying the right upper quadrant.Large amount stool throughout the colon. The sacroiliac joints are grosslypatent. Patient is status post bilateral hip arthroplasty. IMPRESSION: 1. Moderate to severe degenerative changes of the lumbar spine. 2. Calcification overlying the right upper quadrant. Recommend right upperquadrant ultrasound for further evaluation -------- FINAL REPORT -------- Dictated By: Negin Willis Dictated Date: 12/25/2024 19:12 ET Assigned Physician: Negin Willis Reviewed and Electronically Signed By: Negin Willis Signed Date: 12/25/2024 19:14 ET Workstation ID: [id number] Transcribed By: Self Edit Transcribed Date: 12/25/2024 19:12 ET us Anabela RAO IMG XR PROCEDURES Final Re sult * (ABNORMAL) CBC auto differential (12/25/2024 1:10 PM EST) WBC 12.2(H) 4.8 - 10.8 K/mcL LAB HEMETOLOGY METHOD 12/25/2024 1:54 PM [facility] RBC 4.40 3.80 - 4.80 M/mcL LAB HEMETOLOGY METHOD 12/25/2024 1:54 PM [facility] Hemoglobin 12.0 11.5 - 16.0 g/dL LAB HEMETOLOGY METHOD 12/25/2024 1:54 PM [facility] Hematocrit 38.4 35.0 - 47.0 % LAB HEMETOLOGY METHOD 12/25/2024 1:54 PM [facility] MCV 88.3 79.0 - 98.0 FL LAB HEMETOLOGY METHOD 12/25/2024 1:54 PM [facility] MCH 27.6 27.0 - 32.0 pcg LAB HEMETOLOGY METHOD 12/25/2024 1:54 PM [facility] MCHC 31.3(L) 32.0 - 37.0 g/dL LAB HEMETOLOGY METHOD 12/25/2024 1:54 PM [facility] RDW 13.4 11.0 - 15.0 % LAB HEMETOLOGY METHOD 12/25/2024 1:54 PM [facility] Platelets 318 130 - 400 K/mcL LAB HEMETOLOGY METHOD 12/25/2024 1:54 PM [facility] MPV 9.2 7.0 - 11.0 FL LAB HEMETOLOGY METHOD 12/25/2024 1:54 PM [facility] NRBC 0.0 <1.0 % LAB HEMETOLOGY METHOD 12/25/2024 1:54 PM [facility] NRBC Absolute 0.00 <0.10 K/mcL LAB HEMETOLOGY METHOD 12/25/2024 1:54 PM [facility] Neutrophils Relative 53.9 % LAB HEMETOLOGY METHOD 12/25/2024 1:54 PM [facility] Lymphocytes Relative 35.7 % LAB HEMETOLOGY METHOD 12/25/2024 1:54 PM [facility] Monocytes Relative 5.8 % LAB HEMETOLOGY METHOD 12/25/2024 1:54 PM [facility] Eosinophils Relative 3.7 % LAB HEMETOLOGY METHOD 12/25/2024 1:54 PM [facility] Basophils Relative 0.7 % LAB HEMETOLOGY METHOD 12/25/2024 1:54 PM [facility] Immature Granulocytes Relative 0.2 % LAB HEMETOLOGY METHOD 12/25/2024 1:54 PM [facility] Neutrophils Absolute 6.59 1.50 - 7.00 K/mcL LAB HEMETOLOGY METHOD 12/25/2024 1:54 PM [facility] Lymphocytes Absolute 4.37 1.00 - 5.00 K/mcL LAB HEMETOLOGY METHOD 12/25/2024 1:[address] [facility] Monocytes Absolute 0.71 0.20 - 1.00 K/[facility] LAB HEMETOLOGY METHOD 12/25/2024 1:[address] [facility] Eosinophils Absolute 0.45 0.00 - 0.50 K/[facility] LAB HEMETOLOGY METHOD 12/25/2024 1:[address] [facility] Basophils Absolute 0.08 0.00 - 0.20 K/[facility] LAB HEMETOLOGY METHOD 12/25/2024 1:[address] [facility] Immature Granulocytes Absolute 0.03 0.00 - 0.03 K/[facility] HEMETOLOGY METHOD 12/25/2024 1:[address] [facility] Blood Venous blood specimen / Unknown Venipuncture / Unknown 12/25/2024 1:10 PM EST 12/25/2024 1:10 PM EST us Anabela RAO LAB BLOOD ORDERABLES Final Result [facility] [address] [place] [address], * (ABNORMAL) Basic metabolic panel (12/25/2024 1:10 PM EST) Sodium 140 133 - 145 mmol/L LAB CHEMISTRY METHOD 12/25/2024 2:[address] [facility] Potassium 3.7 3.5 - 5.5 mmol/L LAB CHEMISTRY METHOD 12/25/2024 2:45 PM [facility] Chloride 103 96 - 110 mmol/L LAB CHEMISTRY METHOD 12/25/2024 2:45 PM [facility] CO2 28 21 - 32 mmol/L LAB CHEMISTRY METHOD 12/25/2024 2:[address] [facility] Anion Gap 9 3 - 11 LAB CHEMISTRY METHOD 12/25/2024 2:[address] [facility] Glucose 106(H) 70 - 100 mg/dL LAB CHEMISTRY METHOD 12/25/2024 2:[address] [facility] BUN 23 5 - 25 mg/dL LAB CHEMISTRY METHOD 12/25/2024 2:45 PM [facility] Creatinine 1.05 0.50 - 1.10 mg/dL LAB CHEMISTRY METHOD 12/25/2024 2:[address] [facility] eGFR 52(L) >=60 mL/min/1. 73m2 LAB CHEMISTRY METHOD 12/25/2024 2:45 PM [facility] Comment:Calculation based on the Chronic Kidney Disease Epidemiology Collaboration (CKD-EPI) equation refit without adjustment for race. BUN/Creatinine Ratio 21.9 LAB CHEMISTRY METHOD 12/25/2024 2:45 PM [facility] Calcium 8.5 8.5 - 10.5 mg/dL LAB CHEMISTRY METHOD 12/25/2024 2:45 PM [facility] Blood Venous blood specimen / Unknown Venipuncture / Unknown 12/25/2024 1:10 PM EST 12/25/2024 1:10 PM EST us Anabela RAO LAB BLOOD ORDERABLES Final Result [facility] [address] [place] [address], * (ABNORMAL) Lipid panel with reflex to direct LDL (06/21/2024 10:34 AM EDT) Cholesterol 204(H) 0 - 200 mg/dL LAB CHEMISTRY METHOD 06/21/2024 12:[address] [facility] Triglycerides 177(H) 0 - 150 mg/dL LAB CHEMISTRY METHOD 06/21/2024 12:[address] [facility] HDL 46 >=40 mg/dL LAB CHEMISTRY METHOD 06/21/2024 12:[address] [facility] LDL Calculated 123(H) 0 - 100 mg/dL LAB CHEMISTRY METHOD 06/21/2024 12:[address] [facility] VLDL Cholesterol Rico 35.4 mg/dL LAB CHEMISTRY METHOD 06/21/2024 12:[address] [facility] Non HDL Chol. (LDL+VLDL) 158(H) <145 mg/dL LAB CHEMISTRY METHOD 06/21/2024 12:[address] [facility] Chol/HDL Ratio 4.4 0.0 - 4.4 LAB CHEMISTRY METHOD 06/21/2024 12:[address] [facility] Blood Venous blood specimen / Unknown Venipuncture / Unknown 06/21/2024 10:34 AM EDT 06/21/2024 10:34 AM EDT Anabela RAO LAB BLOOD ORDERABLES Final Result [facility] [address] [place] [address], * Falls Risk Assessment (09/14/2023) [facility] Falls Risk Assessment abstracted Historical Provider HEALTH MAINTENANCE Final Result * Depression Screening (09/14/2023) [facility] Depression Screening abstracted Historical Provider HEALTH MAINTENANCE Final Result * DXA BONE DENSITY STUDY 1+ SITS AXIAL SKEL (12/30/2022 2:10 PM EST) Anatomical Region Laterality Modality Bone Densitometr y 11/03/2022 10:3 1 AM EDT Narrative 12/30/2022 3:21 PM EST BONE DENSITY (DEXA) Lumbar Spine T-score is -0.3. (SD relative to 20-29 y/o adult) Z-score is 2.6. (SD relative to age matched peers) This is considered normal by WHO criteria. Left Forearm T-score is -2.6. This is considered osteoporosis by WHO criteria. Lateral view of the spine demonstrates vertebral heights to be maintained. %. IMPRESSION: This patient is considered to have osteoporosis by WHO criteria. The [facility] Department of Internal Medicine recommends using National Osteoporosis Foundation (NOF) guidelines in treatment decisions related to osteoporosis. NOF guidelines suggest considering treatment for postmenopausal women and men aged 50 or older presenting with the following: History of hip or vertebral fracture. T-score = -2.5 (DXA) at the femoral neck, total hip, or spine, after appropriate evaluation to exclude secondary causes. Low bone mass (T-score between -1.0 and -2.5 at the femoral neck or spine) AND a 10-year probability of a hip fracture = 3% OR a 10-year probability of a major osteoporosis-related fracture = 20% based on the [place]-adapted WHO algorithm Please note that all treatment decisions require clinical judgment and consideration of individual patient factors, including patient preferences, co-morbidities, previous drug use, risk factors not captured in the FRAX model (e.g., frailty, falls, vitamin D deficiency, increased bone turnover, interval significant decline in bone density) and possible under- or over-estimation of fracture risk by FRAX. Optional alternative screening schedule based on yarelis Carter., [employer] March 04, 2011 for patients with osteopenia (based on hip BMD T-score) is as follows: * advanced osteopenia (T scores -2.00 to -2.49), BMD testing every year * moderate osteopenia (T scores -1.50 to -1.99), BMD testing every 5 years mild osteopenia or normal BMD (T scores -1.50 and higher), BMD testing every 15 years Procedure Note Leydi Cortez MD - 03/22/2023 BONE DENSITY (DEXA) Lumbar Spine T-score is -0.3. (SD relative to 20-29 y/o adult) Z-score is 2.6. (SD relative to age matched peers) This is considered normal by WHO criteria. Left Forearm T-score is -2.6. This is considered osteoporosis by WHO criteria. Lateral view of the spine demonstrates vertebral heights to be maintained.%. IMPRESSION: This patient is considered to have osteoporosis by WHO criteria. The [facility] Department of Internal Medicinerecommends using National Osteoporosis Foundation (NOF) guidelines in treatment decisionsrelated to osteoporosis. NOF guidelines suggest considering treatment forpostmenopausal women and men aged 50 or older presenting with the following: History of hip or vertebral fracture. T-score = -2.5 (DXA) at the femoral neck, total hip, or spine, afterappropriate evaluation to exclude secondary causes. Low bone mass (T-score between -1.0 and -2.5 at the femoral neck or spine)AND a 10-year probability of a hip fracture = 3% OR a 10-year probability of a majorosteoporosis-related fracture = 20% based on the [place]-adapted WHO algorithm Please note that all treatment decisions require clinical judgment andconsideration of individual patient factors, including patient preferences, co- morbidities,previous drug use, risk factors not captured in the FRAX model (e.g., frailty, falls, vitaminD deficiency, increased bone turnover, interval significant decline in bone density) andpossible under- or over-estimation of fracture risk by FRAX. Optional alternative screening schedule based on nicko Carter al., [place] 2011 for patients with osteopenia (based on hip BMD T-score) is as follows: * advanced osteopenia (T scores -2.00 to -2.49), BMD testing every year * moderate osteopenia (T scores -1.50 to -1.99), BMD testing every 5years mild osteopenia or normal BMD (T scores -1.50 and higher), BMD testingevery 15 years Carmela Blank MD IMG DXA PROCEDURES Final Result from Last 3 Months or Most Recently Relevant to Health Maintenance Insurance MEDICARE [facility] Care Teams Account Receivable Clerk Relationship Specialty Start Date End Date Carmela Blank MD [address] [place] [id number] PCP - General 02/11/10
--- OUTSIDE RECORDS SUMMARY | 2025-01-09 13:29 | XMS_ITS | Encounter Summary ---
Author Organization [facility] Address [address] [place] [address] Care Team Providers Care Evening Or Night Nurse Supervisor Name Role Phone Carmela Blank MD Primary Care Prov ider Reason for Referral * Consultation (Routine) - Authorized Specialty Diagnoses / Procedures Referred By Janine vera Referred To Contact General Surgery Diagnoses Porcelain gallbladder Anabela Folod PA [address], [place] Phone: tel: fax: General Surgery [facility] [address] [place] [address] Phone: tel: fax: Referral ID Status Reason Start Date Expiration Date Visits Requested Visits Authorized [id number] Authorized Specialty Services Required 01/03/2026 1 1 Encounter Details Date Type Department Care Team (Late st Contact Info) Description 01/03/2025 Results Follow-Up Adult Medicine - [place] [address] [place] [id number] Anabela Flood PA [address], [place] Social History Tobacco Use Types Packs/Day Years Used Date Smoking Tobacco: Never Smokeless Tobacco: Never Alcohol Use Standard Drinks/Week Comments No 0 (1 standard drink = 0.6 oz pur e alcohol) Comments No Sex and Gender Information Value Date Recorded Sex Assigned at Female 01/02/2025 11:12 AM EST Legal Sex Female 10:43 PM EST Gender Identity Female 01/02/2025 11:12 AM EST Sexual Orientation Not on file documented as of this encounter Progress Notes * Edith Nichols MA - 01/04/2025 1:17 PM EST Results printed with note of Anabela's message about referral. Packed up to be sent via mail * Rinku Kelly - 01/04/2025 10:14 AM EST Pt calling requesting results for test to be mailed to the address on file. * MAIRA Worthy - 01/03/2025 5:24 PM EST Please call patient and advise The calcification on the x-ray correlates to a densely calcified gallbladder. This has been present on remote studies. This is a so-called porcelain gallbladder. I am going to refer you to general surgery to discuss if anything further is needed for this. documented in this encounter Plan of Treatment Upcoming Encounters Date Type Department Care Team (Late st Contact Info) Description 01/14/2025 10:00 AM EST Consult General Surgery - [place] [address] [place] [address] Adama Hammond, DO [address] [place] [id number] 01/31/2025 1:30 PM EST Appointment Bone Density [address] [place] [phone] Scheduled Referrals Name Type Priority Associated Diagnoses Order Schedule Ambulatory referral to General Surgery Outpatient Referral Routine Porcelain gallbladder 1 Occurrences starting 01/03/2025 until 01/03/2026 documented as of this encounter Visit Diagnoses Diagnosis Porcelain gallbladder- Primary Other specified disorder of gallbladder documented in this encounter Additional Health Concerns Assessment Noted Time PHQ-9 Depression Total Score: 0 06/22/19 9:57 AM EDT A fall risk assessment has been complete d for the patient 06/21/2024 9:56 AM EDT documented as of this encounter Care Teams Evening Or Night Nurse Supervisor Relationship Specialty Start Date End Date Carmela Blank MD [address] [place] [phone] PCP - General 02/11/10 documented as of this encounter
== END 2025-01-09 11:55 | disposition home or self-care (01) ==
LOC: HO.HPHYS 10:57
PROVIDERS: PCP Internal Medicine; Visit Provider Physician Assistant
DX: G60.3 Idiopathic progressive neuropathy (principal)
CPT/HCPCS: 99204

== ENCOUNTER → 2025-01-09 10:57 | Outpatient (BNVA) | payer MEDICARE, BC, SELFPAY | PROVIDERS: PCP Internal Medicine; Visit Provider Physician Assistant | DX: G60.3 Idiopathic progressive neuropathy (principal); M54.16 Radiculopathy, lumbar region | CPT/HCPCS: 99202 ==